=== PATIENT | female | born 1955 | race Caucasian/White ===

== ENCOUNTER → 2016-07-04 08:02 | Day surgery (SDC) | payer MEDICARE, MEDICAID ==
[~2016-07-04 08:02] MED LIST: Buffered Lidocaine 1% SYR 3ML* 3 ML/SYR SYRINGE INTRADERM ONE; Lidocaine 1% INJ* 10 MG/ML 30 ML SDV ONE; Midazolam* 1 MG/ML 5 ML VIAL (5 MG) ONE; Ondansetron INJ* 2 MG/ML VIAL IV PRN; Ondansetron INJ* 2 MG/ML VIAL ONE; Propofol* 10 MG/ML 20 ML BTL IV PUSH ONE; ceFAZolin 2 GM PREMIX (*) 2 GM/50 ML BAG IVPB ONE; fentaNYL* 50 MCG/ML 2 ML VIAL (100 MCG VIAL) ONE
--- NOTE | 2016-07-04 10:36 | SURGPN ---
Brief Operative Note - Surgery Procedures: Procedures Pre-OP Diagnoses: Metastatic Cancer Post-op Diagnosis: same Procedure: Insertion of powerport, needle in Surgeon: Dashawn Asst: none Anethesia: local, JUAN Murphy EBL: minimal IVF: 800cc LR Specimen: none Drains: none 8Fr single lumen power port via R SCV
[2016-07-04 11:17] VITALS: BP 121/76
--- NOTE | 2016-07-04 11:36 | RAD ---
Indication: Post power port placement. Assess for pneumothorax. Adenocarcinoma. Cardiovascular disease and respiratory disease on oxygen. Comparison: May 03, 2016 CT. Technique: Upright AP 1050 hours Report: Tip of RIGHT chest port at level of superior vena cava RIGHT atrial junction directed central. Minimal linear atelectasis at the RIGHT lung base. No alveolar consolidation, focal pulmonary lesion, pleural effusion, pneumothorax. The heart, pulmonary vasculature, and mediastinal contours are unremarkable. IMPRESSION: Negative for pneumothorax post RIGHT chest port placement.
--- NOTE | 2016-07-04 14:26 | RAD ---
INDICATION: chest port placement COMPARISONS: None relevant TECHNIQUE: Fluoroscopy was provided for a vascular access procedure. Total fluoroscopy time is: 52.1 seconds FINDINGS: Spot images demonstrate a right-sided chest port the tip overlying the ureteral junction. IMPRESSION: FLUOROSCOPY WAS PROVIDED FOR A VASCULAR ACCESS PROCEDURE CPT II Codes: 6045F
--- NOTE | 2016-07-05 05:07 | OP ---
DATE OF OPERATION: 07/04/16 [facility] [place] [facility] DATE OF : 59 SURGEON: John Tamez MD MANAGER FINANCIAL SERVICES: None. ANESTHESIOLOGIST: Dr. Rajat Murphy. ANESTHESIA: Local MAC. 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 OPERATIVE PROCEDURE: Insertion of PowerPort. SPECIMEN: None. DRAINS: None. 8-Guinean PowerPort placed in the right subclavian vein. DESCRIPTION OF PROCEDURE: The patient was then identified in the preoperative area. I discussed the case with her again and insertion of PowerPort, going over the risks, benefits, and alternatives. We had briefly spoken of it in my office when she was diagnosed. She had still not seen Oncology. The patient had no questions and understood the possible complications which included, but not limited to bleeding, infection, hemothorax, pneumothorax, need for additional procedures, infection of PowerPort, and the possible need for removal of port. She was marked, taken back to the operating room, and placed on the operating table in a supine position. General sedation was given. SCDs were placed on bilateral lower extremities. Preoperative antibiotics were given and the patient's right upper chest and neck were prepped and draped in a standard surgical fashion. Time-out was performed. Injection of lidocaine along the proposed stick site and port site was carried out. The right subclavian vein with an access and a wire inserted through this toward the superior vena cava. This was done fluoroscopy to assure its placement. With the wire in place, a pocket was made inferior to this and the wire was brought in through the separate incision. The subclavian vein was then dilated with the given dilators under fluoroscopy and the 8-Guinean tubing was then inserted. It was lined up to be the appropriate length and cut size and attached to the pre-flushed port, which was sutured into the pocket with 0 surgical sutures inferiorly, medially, and at the hub. The wound was then irrigated. The port was then accessed and good aspiration of blood was encountered and this was then flushed with saline. The defect was then reapproximated with 3-0 Polysorb sutures followed by 4-0 Monocryl subcuticular suture. Steri-Strips and sterile dressings were applied. Next, the port was accessed with the Garcia needle, again aspiration of blood was performed with ease and the port was then flushed with heparinized saline. Needle was left in place and wound dressing was applied over this. The patient tolerated the procedure well, was transferred to PACU in stable condition. CC: [facility]; Dr. Bishnu Blair; Dr. Ambrosio Peter * [id number][place] [place]: [id number] MTDD
== END | disposition home or self-care (01) ==
LOC: OR 08:02
PROVIDERS: ATTEND Surgery
DX: C80.1 Malignant (primary) neoplasm, unspecified (principal); I48.91 Unspecified atrial fibrillation; I10 Essential (primary) hypertension; J44.9 Chronic obstructive pulmonary disease, unspecified; F17.210 Nicotine dependence, cigarettes, uncomplicated; I51.7 Cardiomegaly
CPT/HCPCS: 71010; C1788; J0690; J1642; J2250; J2405; J2704; J3010

== ENCOUNTER 2016-07-27 15:36 | Emergency (ER) | payer MEDICARE, MEDICAID ==
[2016-07-27 16:35] VITALS: BP 111/60
--- NOTE | 2016-07-27 18:33 | ED ---
Trev Lin Alok, scribed for Willy Jacobo MD on 07/27/16 at 1609 . HPI Cardiac - HPI Summary HPI Summary: 60 y/o female with lymphoma and active chemo presents to the ED following visit to PCP for oxygen re-certification where routine CXR revealed fluid in lung. Pt reports mild chest congestion as well as lower extremity edema. Pt is on home O2 and has a history or A Fib. No other PMHx at this time. - History of Current Complaint Chief Complaint: EDShortnessOfBreath Stated Complaint: REMOVE FLUID FROM THE LUNGS Time Seen by Provider: 07/27/16 15:49 Hx Obtained From: Patient Onset/Duration: Started Hours Ago, Atraumatic, Still Present Timing: Constant Initial Severity: Moderate Current Severity: Moderate Chest Pain Location: Diffuse Chest Pain Radiates: No Character: Other: - congestion Aggravating Factor(s): Nothing Alleviating Factor(s): Nothing Associated Signs and Symptoms: Positive: Chest Pain - Congestion, Edema - LE - Additional Pertinent History Primary Care Physician: DEVYN - Allergy/Home Medications Allergies/Adverse Reactions: Allergies Allergy/AdvReac Type Severity Reaction Status Date / Time No Known Allergies Allergy Verified 07/04/16 08:36 PMH/Surg Hx/FS Hx/Imm Hx Endocrine/Hematology History: Denies: Hx Diabetes, Hx Thyroid Disease Cardiovascular History: Reports: Hx Congestive Heart Failure, Hx Hypertension - W/MEDS, Other Cardiovascular Problems/Disorders Denies: Hx Pacemaker/ICD Respiratory History: Reports: Hx Asthma, Hx Chronic Obstructive Pulmonary Disease (COPD), Hx Pneumonia, Hx Sleep Apnea, Other Respiratory Problems/ Disorders - ON CONTINOUS O2 2L GI History: Reports: Other GI Disorders - cancer in lymph nodes, gall stones Denies: Hx Ulcer Musculoskeletal History: Reports: Hx Arthritis - hand, Hx Back Problems, Other Musculoskeletal History - ARTHRITIS Sensory History: Reports: Hx Contacts or Glasses - glasses Denies: Hx Hearing Aid Opthamlomology History: Reports: Hx Contacts or Glasses - glasses Neurological History: Reports: Hx Headaches Psychiatric History: Denies: Hx Panic Disorder - Cancer History Hx Chemotherapy: Yes - will start on Hx Radiation Therapy: No - Surgical History Surgery Procedure, Year, and Place: TUBAL LIGATION. TONSILECTOMY -1962 Hx Anesthesia Reactions: No Infectious Disease History: No Infectious Disease History: Denies: Hx Clostridium Difficile, Hx Hepatitis, Hx Human Immunodeficiency Virus (HIV), Hx of Known/Suspected MRSA, Hx Shingles, Hx Tuberculosis, Hx Known/ Suspected VRE, Hx Known/Suspected VRSA, History Other Infectious Disease, Traveled Outside the [place] in Last 30 Days - Family History Known Family History: Positive: Other - No - Hx Breast Cancer - Social History Occupation: Unemployed Lives: With Family - Alcohol Use: None Substance Use Type: Reports: None Hx Tobacco Use: Yes Smoking Status (MU): Heavy Every Day Tobacco Smoker Type: Cigarettes Amount Used/How Often: 9/day Length of Time of Smoking/Using Tobacco: 30+ years Have You Smoked in the Last Year: Yes Review of Systems Negative: Fever Positive: Chest Pain - Congestion Positive: Edema - Lower extremeties All Other Systems Reviewed And Are Negative: Yes Physical Exam Triage Information Reviewed: Yes Vital Signs On Initial Exam: Initial Vitals Temp Pulse Resp BP Pulse Ox 97.3 F 105 20 115/71 100 07/27/16 15:39 07/27/16 15:39 07/27/16 15:39 07/27/16 15:39 07/27/16 15:39 Vital Signs Reviewed: Yes Appearance: Positive: Well-Appearing, No Pain Distress Skin: Positive: Warm, Skin Color Reflects Adequate Perfusion, Dry Head/Face: Positive: Normal Head/Face Inspection Eyes: Positive: Normal ENT: Positive: Normal ENT inspection Neck: Positive: Supple, Nontender Respiratory/Lung Sounds: Positive: Clear to Auscultation, Breath Sounds Present Cardiovascular: Positive: Tachycardia - Borderline, Irregular rate Abdomen Description: Positive: Nontender, Soft Bowel Sounds: Positive: Present Musculoskeletal: Positive: Other - Bilateral pedal edema Neurological: Positive: Normal Psychiatric: Positive: Normal, Affect/Mood Appropriate Diagnostics - Vital Signs Vital Signs Temp Pulse Resp BP Pulse Ox 07/27/16 15:39 97.3 F 105 20 115/71 100 - Laboratory Lab Statement: Any lab studies that have been ordered have been reviewed, and results considered in the medical decision making process. - EKG 1543 Cardiac Rate: Tachycardia EKG Rhythm: Sinus Tachycardia - 101 bpm EKG Interpretation: Atrial Fibrillation, Borderline Tachycardia Disposition - Course Course Of Treatment: Ms. New assured me that she was not symptomatic and that she was here in the ED because of an incidental finding on CXR. CXR showed a small pleural effusion has recollected. I spoke with Dr. Chowdhury and she will F/U. - Diagnoses Provider Diagnoses: Pleural effusion Discharge - Discharge Plan Condition: Stable Disposition: HOME Patient Education Materials: Pleural Effusion (ED) Referrals: Ambrosio Peter MD [Primary Care Provider] - Additional Instructions: Please Follow up with Dr. Chowdhury The documentation as recorded by the Trev hu Alok accurately reflects the service I personally performed and the decisions made by me, Willy Jacobo MD.
== END 2016-07-27 16:34 | disposition home or self-care (01) ==
LOC: ED 15:36
DX: J90 Pleural effusion, not elsewhere classified (principal); I48.91 Unspecified atrial fibrillation; I50.9 Heart failure, unspecified; I10 Essential (primary) hypertension; J44.9 Chronic obstructive pulmonary disease, unspecified; J45.909 Unspecified asthma, uncomplicated; Z99.81 Dependence on supplemental oxygen; F17.210 Nicotine dependence, cigarettes, uncomplicated; C85.90 Non-Hodgkin lymphoma, unspecified, unspecified site; R05 Cough
CPT/HCPCS: 71020; 93005; 99282

== ENCOUNTER 2017-01-22 23:12 | Inpatient (IN) | payer MEDICARE, MEDICAID ==
[2017-01-23 00:59] LABS: Mean Corpuscular HGB Conc 35 g/dl (31-36); White Blood Count 1.2 10^3/ul (3.5-10.8)
[2017-01-23 01:01] LABS: Hematocrit 18 % (35-47); Mean Corpuscular Hemoglobin 35 pg (27-31); Mean Corpuscular Volume 101 fL (80-97); Mean Platelet Volume 10 um3 (7.4-10.4); Red Blood Count 1.82 10^6/ul (4.0-5.4); Red Cell Distribution Width 15 % (10.5-15)
[2017-01-23 01:09] LABS: BUN/Creatinine Ratio 32.3 (8-20); Calcium 8.4 mg/dL (8.6-10.3); EGFR African American 42.1 (>60); EGFR Non-African American 32.8 (>60); Globulin 3.3 g/dL (2-4); Potassium 3.9 mmol/L (3.5-5.0); Total Bilirubin 0.8 mg/dL (0.2-1.0); Total Protein 6.3 g/dL (6.4-8.9)
[2017-01-23 01:10] LABS: Add Diff/Slide Review? Slide Review Added; Comments Flag Yes
[2017-01-23 01:11] LABS: Hemoglobin 6.4 g/dl (12.0-16.0)
[2017-01-23] MEDS ORDERED: Albuterol/Ipratropium NEB.SOL* Albuterol 2.5 MG/Ipratropium 0.5 MG 3 ML INH PRN (02:24)
[2017-01-23] MEDS ORDERED: Ondansetron INJ* 2 MG/ML VIAL IV PRN (02:24)
[2017-01-23] MEDS ORDERED: Acetaminophen TAB* 325 MG PO PRN (02:39)
[2017-01-23 02:42] LABS: Fibrinogen 63 mg/dL (110.8-404.3)
[2017-01-23 04:33] LABS: Mean Platelet Volume 7 um3 (7.4-10.4)
[2017-01-23 04:34] LABS: Comments Flag Yes
--- NOTE | 2017-01-23 05:16 | HP ---
ADMISSION HISTORY AND PHYSICAL: DATE OF ADMISSION: 01/23/17 PRIMARY CARE PROVIDER: Dr. Peter. ONCOLOGIST: Dr. Chowdhury. HEALTHCARE PROXY: The patient does not want to identify healthcare proxy at this time. CODE STATUS: Full. SOURCE OF INFORMATION: History obtained from interview with the patient, review of past medical records. RELIABILITY: Good. CHIEF COMPLAINT: Told to come in for thrombocytopenia. HISTORY OF PRESENT ILLNESS: This is a 61-year-old female, medical history including metastatic cholangio-carcinoma, receiving palliative chemotherapy per record review July 2016, received last dose of this cycle 1 week prior to this day. She has been feeling herself except for maybe a little more drained/tired with less energy over the last 3 to 4 days. She also has noted increased dyspnea on exertion with performing activities around the house. She denies any bleeding from her teeth while brushing them, although did have a bloody nose that was intermittent "on and off " for 2 to 3 days that ended 2 days prior to presentation. She noticed increased bruising in her arms with itching and a larger bruise with the phlebotomy performed for recent blood check. The patient denies any melena or bright red blood in her stool. PAST MEDICAL HISTORY: Includes: 1. COPD with chronic respiratory failure, on home 2 L of oxygen. 2. Atrial fibrillation. 3. Chronic cholecystitis. 4. Hypertension. 5. History of tonsillectomy. 6. Tubal ligation. 7. Metastatic cholangiocarcinoma. MEDICATIONS: The patient brought medications, reviewed with the patient: 1. Zofran 4 mg every 6 hours as needed for nausea. 2. Pulmicort ___BID__. 3. Magnesium 500 mg 3 times a day. 4. Zenpep DR 50,000 mg 3 times a day with meals. 5. Digoxin 0.25 mg Saturday through Saturday and 500 mcg Saturday and Sundays. 6. Xarelto 20 mg daily. 7. Loperamide 2 mg for loose stools as needed. 8. Spironolactone 50 mg daily. 9. Toprol 50 mg twice daily. 10. Lasix 80 mg daily. 11. Montelukast 10 mg daily. 12. Diltiazem 30 mg 4 times a day. 13. Prochlorperazine 10 mg as needed. 14. Albuterol nebulizer as needed. ALLERGIES: No known drug allergies. FAMILY HISTORY: Mother with leukemia, father with an [place]. SOCIAL HISTORY: , lives with her family at home. Smokes 1 pack per day for approximately 30 years. REVIEW OF SYSTEMS: Otherwise, all other systems reviewed are negative. PHYSICAL EXAMINATION GENERAL: Older than stated age. VITAL SIGNS: In the emergency room, blood pressure 120/59, pulse 64, respiratory rate 20, T-max 99.2, she is 96% on 2 L oxygen. HEENT: Oropharynx is clear. Dry mucous membranes. Sclerae are anicteric. LUNGS: Clear to auscultation. HEART: Irregularly irregular heart rate. ABDOMEN: Soft, nontender, nondistended. EXTREMITIES: Warm, well perfused without clubbing, cyanosis, or edema. She has a bruising in bilateral arms as well as splinter erythema in lower extremities, 1 to 2+ bilateral pitting edema. NEUROLOGIC: She is alert and oriented x3. Her cranial nerves are intact. LABORATORY DATA: Pertinent laboratory data reviewed: White blood cell count 1.2, absolute neutrophils 800, hemoglobin 6.4, MCV 101, platelets 2. BUN is 52 , creatinine 1.62. AST 60, ALT 66, alk phos 136. Albumin is 3.0. INR was noted to be 15.75 with a PTT greater than 212. ASSESSMENT AND PLAN: This is a 61-year-old female with a past medical history of metastatic cholangiocarcinoma, currently receiving palliative chemotherapy per chart review, presented to the hospital as she was found with severe thrombocytopenia. 1. Thrombocytopenia. Currently receiving unit of platelets, recheck 1 hour after receipt of platelets. Second unit of platelets is en route from [place]. Adding on fibrinogen as well as LDH given thrombocytopenia, anemia, and elevated coagulation factors. 2. Anemia. One unit of blood ordered by Dr. Hilario in the ED. Recheck CBC in the morning. 3. Neutropenia. No active fever. If develops fever, will need antibiotics for neutropenic fever, although no evidence that she is actively infected at this time. 4. Elevated coagulation factors. Did discuss with Dr. Clay, agree with his suggestion, recheck from peripheral blood draw and not from central port. Adding on fibrinogen as well as LDH as indicated above. In the setting of active chemo as well as malignancy, I do not suspect microangiopathic hemolytic anemia; however, smear is still pending at this time. 5. Chronic obstructive pulmonary disease with chronic respiratory failure. Continue all home medications. 6. Hypertension. Continue all home medications. 7. Atrial fibrillation. Continue diltiazem as well as metoprolol and digoxin, holding Xarelto given severe thrombocytopenia. 8. DVT prophylaxis is contraindicated in the setting of thrombocytopenia. [id number]/[facility] #: [id number] MTDD
[2017-01-23] MEDS: Diltiazem TAB* 30 MG PO SCH ×4 (06:15→23:28)
[2017-01-23] MEDS: Digoxin TAB* 0.25 MG PO SCH (06:20)
--- NOTE | 2017-01-23 06:49 | ED ---
Jakub Lin Rebecca, scribed for Nathan Hilariouel on 01/22/17 at 2338 . Complex/Multi-Sys Presentation - HPI Summary HPI Summary: Pt is a 61 y/o F BIBA who presents to ED after being referred by Dr. Clay upon receiving blood results revealing low platelet count. She was advised to come to [facility] ED because her levels are dangerously low. Additionally c/o bilateral edema and generalized weakness stating she feels "drained." Denies any pain and hematuria. Is currently undergoing chemotherapy via chest port to treat lymphoma. Last chemo session was 01/15 and the next is 01/29. - History Of Current Complaint Chief Complaint: EDWeakness Time Seen by Provider: 01/22/17 23:23 Hx Obtained From: Patient Onset/Duration: Still Present Severity Currently: None Location: Negative Aggravating Factor(s): Nothing Alleviating Factor(s): Nothing Associated Signs And Symptoms: Positive: Weakness - Generalized, Other - Low platelet count - Allergies/Home Medications Allergies/Adverse Reactions: Allergies Allergy/AdvReac Type Severity Reaction Status Date / Time No Known Allergies Allergy Verified 09/12/16 11:57 PMH/Surg Hx/FS Hx/Imm Hx Endocrine/Hematology History: Denies: Hx Diabetes, Hx Thyroid Disease Cardiovascular History: Reports: Hx Congestive Heart Failure, Hx Hypertension - W/MEDS, Other Cardiovascular Problems/Disorders - A FIB, ON MEDS Denies: Hx Pacemaker/ICD Respiratory History: Reports: Hx Asthma, Hx Chronic Obstructive Pulmonary Disease (COPD), Hx Pneumonia, Hx Sleep Apnea, Other Respiratory Problems/ Disorders - ON CONTINOUS O2 2L GI History: Reports: Other GI Disorders - cancer in lymph nodes, gall stones Denies: Hx Ulcer History: Reports: Hx Renal Disease - abnormal gfr Denies: Hx Dialysis Musculoskeletal History: Reports: Hx Arthritis - hand, Hx Back Problems, Other Musculoskeletal History - ARTHRITIS Sensory History: Reports: Hx Contacts or Glasses - glasses Denies: Hx Hearing Aid Opthamlomology History: Reports: Hx Contacts or Glasses - glasses Neurological History: Reports: Hx Headaches Psychiatric History: Denies: Hx Panic Disorder - Cancer History Cancer Type, Location and Year: gallbladder Hx Chemotherapy: Yes - will start on Hx Radiation Therapy: No - Surgical History Surgery Procedure, Year, and Place: TUBAL LIGATION. TONSILECTOMY -1963 Hx Anesthesia Reactions: No Infectious Disease History: Denies: Hx Clostridium Difficile, Hx Hepatitis, Hx Human Immunodeficiency Virus (HIV), Hx of Known/Suspected MRSA, Hx Shingles, Hx Tuberculosis, Hx Known/ Suspected VRE, Hx Known/Suspected VRSA, History Other Infectious Disease, Traveled Outside the [place] in Last 30 Days - Family History Known Family History: Positive: Other - No - Hx Breast Cancer - Social History Alcohol Use: None Substance Use Type: Reports: None Hx Tobacco Use: Yes Smoking Status (MU): Heavy Every Day Tobacco Smoker Type: Cigarettes Amount Used/How Often: 9/day Length of Time of Smoking/Using Tobacco: 30+ years Have You Smoked in the Last Year: Yes Review of Systems Positive: Other - Low platelet count Negative: hematuria Positive: Edema - Bilateral, Other - NEGATIVE: any pain Positive: Weakness - Generalized All Other Systems Reviewed And Are Negative: Yes Physical Exam - Summary Physical Exam Summary: Appearance: Well appearing, no pain distress Skin: warm, dry Head/face: normal Eyes: EOMI, ALLY ENT: normal Neck: supple, nontender Respiratory: CTA, breath sounds present Cardiovascular: RRR, pulses symmetrical, catheter in the chest Abdomen: nontender, soft Bowel: present Musculoskeletal: strength/ROM intact, rash over the extremities, bilateral pedal edema Neuro: normal, sensory motor intact, A&Ox3 Triage Information Reviewed: Yes Vital Signs On Initial Exam: Initial Vitals Temp Pulse Resp BP Pulse Ox 99.2 F 64 20 120/59 96 01/22/17 23:18 01/22/17 23:18 01/22/17 23:18 01/22/17 23:18 01/22/17 23:18 Vital Signs Reviewed: Yes Diagnostics - Vital Signs Vital Signs Temp Pulse Resp BP Pulse Ox 01/22/17 23:18 99.2 F 64 20 120/59 96 - Laboratory Lab Results: Lab Results 01/23/17 01/23/17 01/23/17 Range/Units 00:32 00:32 00:32 WBC 1.2 L (3.5-10.8) 10^3/ul RBC 1.82 L (4.0-5.4) 10^6/ul Hgb 6.4 L* (12.0-16.0) g/dl Hct 18 L (35-47) % MCV 101 H (80-97) fL MCH 35 H (27-31) pg MCHC 35 (31-36) g/dl RDW 15 (10.5-15) % Plt Count 2 L* (150-450) 10^3/ul MPV 10 (7.4-10.4) um3 Neut % (Auto) 65.9 (38-83) % Lymph % (Auto) 28.2 (25-47) % [place] % (Auto) 5.6 (1-9) % Eos % (Auto) 0.2 (0-6) % Baso % (Auto) 0.1 (0-2) % Absolute Neuts (auto) 0.8 L* (1.5-7.7) 10^3/ul Absolute Lymphs (auto) 0.3 L (1.0-4.8) 10^3/ul Absolute Monos (auto) 0.1 (0-0.8) 10^3/ul Absolute Eos (auto) 0 (0-0.6) 10^3/ul Absolute Basos (auto) 0 (0-0.2) 10^3/ul Absolute Nucleated RBC 0 10^3/ul Nucleated RBC % 0.1 INR (Anticoag Therapy) 15.75 H* (0.89-1.11) APTT > 212.0 H* (26.0-36.3) seconds Fibrinogen 63 L* (110.8-404.3) mg/dL Sodium (133-145) mmol/L Potassium (3.5-5.0) mmol/L Chloride (101-111) mmol/L Carbon Dioxide (22-32) mmol/L Anion Gap (2-11) mmol/L BUN (6-24) mg/dL Creatinine (0.51-0.95) mg/dL Est GFR ( Amer) (>60) Est GFR (Non-Af Amer) (>60) BUN/Creatinine Ratio (8-20) Glucose (70-100) mg/dL Calcium (8.6-10.3) mg/dL Total Bilirubin (0.2-1.0) mg/dL AST (13-39) U/L ALT (7-52) U/L Alkaline Phosphatase (34-104) U/L Lactate Dehydrogenase (140-271) U/L Total Protein (6.4-8.9) g/dL Albumin (3.2-5.2) g/dL Globulin (2-4) g/dL Albumin/Globulin Ratio (1-3) Blood Type O Positive Antibody Screen Negative Crossmatch See Detail 01/23/17 Range/Units 00:32 WBC (3.5-10.8) 10^3/ul RBC (4.0-5.4) 10^6/ul Hgb (12.0-16.0) g/dl Hct (35-47) % MCV (80-97) fL MCH (27-31) pg MCHC (31-36) g/dl RDW (10.5-15) % Plt Count (150-450) 10^3/ul MPV (7.4-10.4) um3 Neut % (Auto) (38-83) % Lymph % (Auto) (25-47) % [place] % (Auto) (1-9) % Eos % (Auto) (0-6) % Baso % (Auto) (0-2) % Absolute Neuts (auto) (1.5-7.7) 10^3/ul Absolute Lymphs (auto) (1.0-4.8) 10^3/ul Absolute Monos (auto) (0-0.8) 10^3/ul Absolute Eos (auto) (0-0.6) 10^3/ul Absolute Basos (auto) (0-0.2) 10^3/ul Absolute Nucleated RBC 10^3/ul Nucleated RBC % INR (Anticoag Therapy) (0.89-1.11) APTT (26.0-36.3) seconds Fibrinogen (110.8-404.3) mg/dL Sodium 134 (133-145) mmol/L Potassium 3.9 (3.5-5.0) mmol/L Chloride 101 (101-111) mmol/L Carbon Dioxide 26 (22-32) mmol/L Anion Gap 7 (2-11) mmol/L BUN 52 H (6-24) mg/dL Creatinine 1.61 H (0.51-0.95) mg/dL Est GFR ( Amer) 42.1 (>60) Est GFR (Non-Af Amer) 32.8 (>60) BUN/Creatinine Ratio 32.3 H (8-20) Glucose 108 H (70-100) mg/dL Calcium 8.4 L (8.6-10.3) mg/dL Total Bilirubin 0.80 (0.2-1.0) mg/dL AST 60 H (13-39) U/L ALT 66 H (7-52) U/L Alkaline Phosphatase 136 H (34-104) U/L Lactate Dehydrogenase 170 (140-271) U/L Total Protein 6.3 L (6.4-8.9) g/dL Albumin 3.0 L (3.2-5.2) g/dL Globulin 3.3 (2-4) g/dL Albumin/Globulin Ratio 0.9 L (1-3) Blood Type Antibody Screen Crossmatch Result Diagrams: 01/23/17 04:25 01/23/17 00:32 Lab Statement: Any lab studies that have been ordered have been reviewed, and results considered in the medical decision making process. Complex Multi-Symp Course/Dx Assessment/Plan: Pt is a 61 y/o F BIBA who presents to ED after being referred by Dr. Clay upon receiving blood results revealing low platelet count. She was advised to come to [facility] ED because her levels are dangerously low. Additionally c /o bilateral edema and generalized weakness stating she feels "drained." Denies any pain and hematuria. Is currently undergoing chemotherapy via chest port to treat lymphoma. Last chemo session was 01/15 and the next is 01/29. Blood work done. WBC of 1.2 L, Hgb of 6.4L, Plt count of 2L, absolute neuts of 0.8LDiscussed care of pt with Dr. Razo, hospitalist, who accepts pt for admission. She will be admitted with Dx of pancytopenia, Hx of lymphoma, Hx of chemotherapy. She understands and agrees. - Diagnoses Provider Diagnoses: Pancytopenia, History of lymphoma, History of chemotherapy - Physician Notifications Discussed Care Of Patient With: Jeffrey Razo Time Discussed With Above Provider: 01:18 Instructed by Provider To: Other - Accepts pt for admission. - Critical Care Time Critical Care Time: 30-74 min Discharge - Discharge Plan Condition: Stable Disposition: ADMITTED TO [facility] The documentation as recorded by the Jakub hu Rebecca accurately reflects the service I personally performed and the decisions made by , Lukasz Hilario.
[2017-01-23] MEDS: Pancrelipase CAP* 5,000 UNITS CAP PO SCH ×3 (08:20→17:42)
[2017-01-23] MEDS: Magnesium Oxide TAB* 400 MG PO SCH ×3 (08:21→20:11)
[2017-01-23] MEDS: Montelukast Sodium TAB* 10 MG PO SCH (08:22)
[2017-01-23] MEDS: Mometasone/Formoter 200/5 MDI INH SCH ×2 (09:59→20:22)
[2017-01-23] MEDS: Furosemide TAB* 40 MG PO SCH (10:20)
[2017-01-23] MEDS: Metoprolol Tartrate TAB* 50 mg PO SCH ×2 (10:20→20:11)
[2017-01-23] MEDS: Spironolactone TAB* 25 MG PO SCH (10:20)
[2017-01-23 18:26] LABS: Hematocrit 26 % (35-47); Hemoglobin 8.8 g/dl (12.0-16.0); Mean Corpuscular HGB Conc 34 g/dl (31-36); Mean Corpuscular Hemoglobin 32 pg (27-31); Mean Corpuscular Volume 94 fL (80-97); Mean Platelet Volume 7 um3 (7.4-10.4); Red Blood Count 2.72 10^6/ul (4.0-5.4); Red Cell Distribution Width 20 % (10.5-15)
[2017-01-23 18:32] LABS: Comments Flag Yes; White Blood Count 1.5 10^3/ul (3.5-10.8)
[2017-01-23 18:34] LABS: Add Diff/Slide Review? Slide Review Added
[2017-01-24] MEDS: Digoxin TAB* 0.25 MG PO SCH (05:59)
[2017-01-24] MEDS: Diltiazem TAB* 30 MG PO SCH ×2 (05:59→12:53)
[2017-01-24] MEDS: Pancrelipase CAP* 5,000 UNITS CAP PO SCH ×2 (08:50→12:44)
[2017-01-24] MEDS: Metoprolol Tartrate TAB* 50 mg PO SCH (08:52)
[2017-01-24] MEDS: Montelukast Sodium TAB* 10 MG PO SCH (08:52)
[2017-01-24] MEDS: Magnesium Oxide TAB* 400 MG PO SCH ×2 (08:52→14:55)
[2017-01-24] MEDS ORDERED: Influenza VAC *QUAD* 2017-18* 0.5 ML SYRINGE IM ONE (09:00)
[2017-01-24] MEDS: Mometasone/Formoter 200/5 MDI INH SCH (09:20)
[2017-01-24] MEDS: Spironolactone TAB* 25 MG PO SCH (09:27)
[2017-01-24] MEDS: Furosemide TAB* 40 MG PO SCH (09:27)
--- NOTE | 2017-01-24 11:07 | DS ---
DATE OF ADMISSION: 01/23/2017. DATE OF DISCHARGE: 01/24/2017. ATTENDING PHYSICIAN: Dr. Cheyenne Chowdhury * (dictated by IND[place]NA Ingram). REASON FOR ADMISSION: Pancytopenia, shortness of breath, profound anemia, and profound thrombocytopenia, history of pancreatic cancer, status post Gemcitabine chemotherapy last week. DISCHARGE MEDICATIONS: Discharge medications will include all of her previous home medications which include: 1. Digoxin 0.25 mg p.o. Saturday, Saturday, Saturday, , Saturday. 2. Digoxin 0.5 mg p.o. Saturday and Saturday. 3. Cardizem 30 mg every 6 hours as scheduled. 4. Lasix 80 mg p.o. daily. 5. Magnesium Oxide 400 mg p.o. 3 times daily. 6. Lopressor 50 mg p.o. q.12 hours. 7. Mometasone, a.k.a. Dulera 200/5 two puffs inhaled twice daily. 8. Singulair tab 10 mg p.o. daily. 9. Zofran 4 mg as needed for nausea. 10. Pancrelipase 50,000 units p.o. with meals. 11. Spironolactone 50 mg p.o. daily. HOSPITAL COURSE: The patient was admitted on 01/23/[address] Jeffrey Razo for a chief complaint of told to come in for thrombocytopenia by Dr. Clay through the Oncology Service. Briefly, she is a 61-year-old white female who we have treated for metastatic cholangiocarcinoma, receiving palliative chemotherapy, including Gemcitabine last week. For three to four days, she has had some dyspnea with exertion and significant fatigue with increased bruising and denies melena in her stool. Upon the admission through the emergency room, her blood counts were ANC of 800, platelet count of 2, and hemoglobin of 6.4. She was transfused with three donor packs of platelets and two units of packed red blood cells for which her blood counts increased nicely to a final , an absolute neutrophil count of 1.1, hemoglobin of 8.8, and platelet count yet to be determined as she still is receiving one donor pack prior to her discharge. She was afebrile and her vital signs were stable throughout her transfusions and has tolerated them well. She does have a follow-up office visit with Dr. Chowdhury as scheduled on Saturday at the [facility]. She will follow a regular diet as tolerated and an activity level with no high impact activities. INDIANA INGRAM [id number]/[facility] #: [id number] MTDD
[2017-01-24 15:32] VITALS: BP 114/54
[2017-01-24 16:14] LABS: Hematocrit 24 % (35-47); Hemoglobin 8.2 g/dl (12.0-16.0); Mean Corpuscular HGB Conc 34 g/dl (31-36); Mean Corpuscular Hemoglobin 32 pg (27-31); Mean Corpuscular Volume 94 fL (80-97); Mean Platelet Volume 7 um3 (7.4-10.4); Red Blood Count 2.56 10^6/ul (4.0-5.4); Red Cell Distribution Width 20 % (10.5-15)
[2017-01-24 16:15] LABS: Comments Flag Yes
[2017-01-24 16:16] LABS: Add Diff/Slide Review? Slide Review Added; White Blood Count 1.9 10^3/ul (3.5-10.8)
[2017-01-26] MEDS ORDERED: Digoxin TAB* 0.25 MG PO SCH (06:00)
== END 2017-01-24 16:45 | disposition home or self-care (01) | DRG 809 ==
LOC: ED 23:12 → MED 01-23 02:24 → OBSVTOIN 01-23 10:35
PROVIDERS: ADMIT Internal Medicine; ATTEND Internal Medicine Hematology & Oncology
PROC: 30233R1 Transfusion of Nonautologous Platelets into Peripheral Vein, Percutaneous Approach (ICD-10-PCS; principal; 2017-01-23)
PROC: 30233N1 Transfusion of Nonautologous Red Blood Cells into Peripheral Vein, Percutaneous Approach (ICD-10-PCS; 2017-01-23)
DX: D61.818 Other pancytopenia (principal); J96.10 Chronic respiratory failure, unspecified whether with hypoxia or hypercapnia; C79.9 Secondary malignant neoplasm of unspecified site; I11.0 Hypertensive heart disease with heart failure; C25.9 Malignant neoplasm of pancreas, unspecified; I50.9 Heart failure, unspecified; K81.1 Chronic cholecystitis; D69.6 Thrombocytopenia, unspecified; I48.91 Unspecified atrial fibrillation; D64.9 Anemia, unspecified; J44.9 Chronic obstructive pulmonary disease, unspecified; F17.210 Nicotine dependence, cigarettes, uncomplicated; R79.1 Abnormal coagulation profile; G47.30 Sleep apnea, unspecified; M19.049 Primary osteoarthritis, unspecified hand; Z99.81 Dependence on supplemental oxygen; Z98.51 Tubal ligation status; Z82.49 Family history of ischemic heart disease and other diseases of the circulatory system; Z80.6 Family history of leukemia; Z92.21 Personal history of antineoplastic chemotherapy; Z95.828 Presence of other vascular implants and grafts; Z87.01 Personal history of pneumonia (recurrent)
CPT/HCPCS: 36415; 80053; 83615; 85025; 85049; 85384; 85610; 85730; 86850; 86900; 86901; 86922; 94640; 94760; 99232; 99239; 99406; A9270-GY; G0378; J1642; P9035; P9040

== ENCOUNTER 2017-04-03 19:27 | Emergency (ER) | payer MEDICARE, MEDICAID ==
[2017-04-03 19:38] VITALS: BP 128/70
--- NOTE | 2017-04-03 21:45 | UC ---
Agustín Lin Thomas, scribed for Binu Valera MD on 04/03/17 at 1953 . Shortness of Breath HPI - HPI Summary HPI Summary: The pt is a 61 y/o F presenting to Urgent Care c/o SOB at rest that began earlier today after she woke up from a nap. PMHx includes lymphoma and the patient is on chemotherapy. She is on 2L home oxygen, and earlier today the patients son drained fluid in the patients right lung via a tube. This improved the patients SOB somewhat. The patient also c/o intermittent epistaxis that began yesterday and is mostly relieved by evaluation in urgent care. She was recently hospitalized for bronchopneumonia. The patient recently finished a course of antibiotics. She is on Xarelto. - History of Current Complaint Chief Complaint: UCRespiratory Stated Complaint: SOB Time Seen by Provider: 04/03/17 19:32 Hx Obtained From: Patient Hx Last Menstrual Period: 1 week ago Onset/Duration: Lasting Hours - earlier today, Still Present Timing: Constant Dyspnea At: Rest Aggrevating Factors: Nothing Alleviating Factors: Other - Fluid drainage Associated Signs & Symptoms: Positive: Other - Epistaxis - Allergy/Home Medications Allergies/Adverse Reactions: Allergies Allergy/AdvReac Type Severity Reaction Status Date / Time No Known Allergies Allergy Verified 04/03/17 19:37 Home Medications: Home Medications Potassium Chlor TAB* [Potassium Chlor TAB 20 MEQ*] 40 meq PO DAILY 04/03/17 [ History Confirmed 04/03/17] PMH/Surg Hx/FS Hx/Imm Hx Previously Healthy: No - Cancer, COPD, A-Fib - Surgical History Surgical History: Yes Surgery Procedure, Year, and Place: TUBAL LIGATION. TONSILECTOMY -1962. TUBE IN RIGHT LUNG 02/2017. IMPLANTED PORT RIGHT CHEST 04/2016 - Family History Known Family History: Positive: Other - No - Hx Breast Cancer - Social History Alcohol Use: None Substance Use Type: None Smoking Status (MU): Current Every Day Smoker Type: Cigarettes Amount Used/How Often: 1/2-3/4 PPD Length of Time of Smoking/Using Tobacco: 30+ years Have You Smoked in the Last Year: Yes Household Exposure Type: Cigarettes - Immunization History Most Recent Influenza Vaccination: This flu season Most Recent Tetanus Shot: 2014 Most Recent Pneumonia Vaccination: "a few years ago" Review of Systems ENT: Epistaxis Respiratory: Shortness Of Breath All Other Systems Reviewed And Are Negative: Yes Physical Exam Triage Information Reviewed: Yes Vital Signs: Initial Vital Signs Temp 99 F 04/03/17 19:30 Pulse 124 04/03/17 19:30 Resp 22 04/03/17 19:30 BP 128/70 04/03/17 19:30 Pulse Ox 97 04/03/17 19:30 Vital Signs Reviewed: Yes - Additional Comments VITAL SIGNS: Reviewed. GENERAL: The patient is an elderly, fragile female who is tachycardic and short of breath. However, she is able to speak in full sentences. Patient is not in any acute respiratory distress. HEAD AND FACE: Normocephalic EYES: PERRLA, EOMI x 2. EARS: Hearing grossly intact. MOUTH: Oropharynx within normal limits. Nose: The right nostril has dried blood without any active bleeding. NECK: Supple, trachea is midline, no adenopathy, no JVD, no carotid bruit. CHEST: Symmetric, no tenderness at palpation LUNGS: The right lung has decreased breath sounds, crackles, and rhonchi. CVS: Regular rhythm, tachycardia, S1 and S2 present, no murmurs or gallops appreciated. ABDOMEN: Soft, non-tender. Bowel sounds are normal. No abdominal abnormal pulsations. EXTREMITIES: She has bilateral lower extremity edema. Full ROM in all major joints, no cyanosis or clubbing. NEURO: Alert and oriented x 3. No acute neurological deficits. Speech is normal and follows commands. SKIN: Dry and warm Shortness of Breath Dx - Course Course Of Treatment: The pt is a 61 y/o F presenting to Urgent Care c/o SOB at rest that began earlier today. PMHx includes lymphoma and the patient is on chemotherapy. She is on 2L home oxygen, and earlier today the patients son drained fluid in the patients right lung via a tube. This improved the patient s SOB somewhat. The patient also c/o intermittent epistaxis that began yesterday and is mostly relieved by evaluation in urgent care. She was recently hospitalized for bronchopneumonia. The patient recently finished a course of antibiotics. She is on Xarelto. The patient is an elderly female with no active epistaxis. The patient is taking blood thinners. She is also having shortness of breath and a productive cough. The son reports that he drained some of the patients pleural effusion earlier today; however, the patients shortness of breath continues and is worsening. In the physical exam, the patient has right lung crackles and rhonchi but no wheezing. Therefore, the patient was not given any Duo-Neb or Solu-Medrol. I believe the patient will benefit from further workup in the emergency department. She will go by ambulance to the [facility] emergency department. - Differential Dx/Diagnosis Differential Diagnosis/HQI/PQRI: Bronchitis, CHF, COPD Exacerbation, Pneumonia, Pulmonary Edema Provider Diagnoses: COPD, Pleural effusion, SOB, tachycardia, epistaxis. - Physician Notification/Consults Discussed Patient Care With: Liv Dorado Time Discussed With Above Provider: 19:50 Instructed by Provider To: Other - I discussed the case with Dr. Dorado, emergency medicine physician at [facility], who will accept the patient for transfer. Discharge - Discharge Plan Condition: Fair Disposition: OTHER Discharge Disposition Comment: Transferred to [facility] ED by ambulance. Referrals: Ambrosio Peter MD [Primary Care Provider] - The documentation as recorded by the Agustín hu Thomas accurately reflects the service I personally performed and the decisions made by , Binu Valera MD.
== END 2017-04-03 20:08 ==
LOC: UCEAST 19:27
DX: J90 Pleural effusion, not elsewhere classified (principal); R06.02 Shortness of breath; R00.0 Tachycardia, unspecified; R04.0 Epistaxis; J44.9 Chronic obstructive pulmonary disease, unspecified; Z72.0 Tobacco use
CPT/HCPCS: 99213; G0463

== ENCOUNTER 2017-04-03 20:34 | Inpatient (IN) | payer MEDICARE, MEDICAID ==
[2017-04-03] MEDS ORDERED: Levofloxacin 750 MG IVPREMIX(* 750 MG/150 ML BAG IVPB ONE (20:53)
[2017-04-03] MEDS ORDERED: NS 0.9% 1000 ML*IV.FLUID IV ONE (20:53)
[2017-04-03] MEDS ORDERED: Piperacillin/Tazobac ADVAN(*) 3.375 GM in NS 0.9% 100 ML* 100 ML IVPB ONE (20:53)
[2017-04-03 21:16] LABS: ABS Basophils 0 10^3/ul (0-0.2); ABS Eosinophils 0 10^3/ul (0-0.6); ABS Lymphocytes 0.3 10^3/ul (1.0-4.8); ABS Monocytes 0.8 10^3/ul (0-0.8); ABS Neutrophils 6.4 10^3/ul (1.5-7.7); ABS Nucleated RBC 0.03 10^3/ul; Eosinophil % 0.2 % (0-6); Hematocrit 26 % (35-47); Hemoglobin 8.6 g/dl (12.0-16.0); Lymphocyte % 3.6 % (25-47); Mean Corpuscular HGB Conc 33 g/dl (31-36); Mean Corpuscular Hemoglobin 35 pg (27-31); Mean Platelet Volume 10 um3 (7.4-10.4); Nucleated Red Blood Cells % 0.3; Red Blood Count 2.46 10^6/ul (4.0-5.4); Red Cell Distribution Width 20 % (10.5-15); White Blood Count 7.5 10^3/ul (3.5-10.8)
[2017-04-03 21:17] LABS: Mean Corpuscular Volume 107 fL (80-97); Platelet Count 33 10^3/ul (150-450)
[2017-04-03 21:26] LABS: INR 2.52 (0.89-1.11)
[2017-04-03 21:32] LABS: EGFR Non-African American 28.8 (>60)
--- NOTE | 2017-04-03 21:53 | RAD ---
Indication: Shortness of breath, COPD, pleural effusion. Epistaxes. Anticoagulated. Cholangiocarcinoma. Comparison: March 19, 2017 Technique: Sitting AP and lateral chest views. Report: Extensive airspace consolidation in the RIGHT lung. Small RIGHT pleural effusion with proportional basilar atelectasis. RIGHT basilar pleural drainage catheter in place without change. Negative for pneumothorax. Clear LEFT lung and pleural space. Tip of RIGHT chest port at level of superior vena cava directed central. Upper normal heart size. Unremarkable central pulmonary vasculature. IMPRESSION: Extensive airspace consolidation at the RIGHT lung grossly new compared with the recent prior exam most consistent with pneumonia. RIGHT pleural drainage catheter remains in place. No significant change in magnitude of small RIGHT pleural effusion.
[2017-04-03 21:57] LABS: Monocytes % 10 % (0-13)
[2017-04-03] MEDS ORDERED: Oseltamivir CAP* 75 MG PO ONE (22:18)
[2017-04-04] MEDS ORDERED: Albuterol HFA INHALER* 8 gm MDI INH PRN (00:18)
[2017-04-04] MEDS ORDERED: Diphenoxylat/Atrop 2.5-0.025M* 1 TAB PO PRN (00:18)
[2017-04-04] MEDS ORDERED: Ondansetron TAB* 4 MG PO PRN (00:18)
[2017-04-04] MEDS ORDERED: oxyCODONE TAB* 5 MG TAB PO PRN (00:18)
[2017-04-04] MEDS ORDERED: Prochlorperazine TAB* 10 MG PO PRN (00:18)
[2017-04-04] MEDS ORDERED: Digoxin IV* 0.5 MG/2 ML AMP (0.25 MG/ML) IV SLOW PU ONE (01:40)
[2017-04-04] MEDS: NS 0.9% 1000 ML* 1,000 ML IV SCH ×2 (01:45→18:18)
[2017-04-04] MEDS ORDERED: Digoxin IV* 0.5 MG/2 ML AMP (0.25 MG/ML) ONE (01:48)
[2017-04-04] MEDS: Metoprolol Tartrate TAB* 50 mg PO SCH ×3 (02:03→22:30)
[2017-04-04] MEDS: Diltiazem TAB* 30 MG PO SCH ×5 (02:04→22:30)
[2017-04-04 02:32] LABS: Urine Appearance Clear; Urine Blood 2+ (Negative); Urine Color Yellow; Urine Ketones Negative (Negative); Urine Protein Negative (Negative); Urine Specific Gravity 1.012 (1.010-1.030); Urine Urobilinogen Negative (Negative)
[2017-04-04] MEDS ORDERED: Oseltamivir CAP* 30 MG CAP PO SCH (03:00)
[2017-04-04] MEDS: Oxymetazoline 0.05% NASAL SPR* 15 ML BTL RIGHT NARE SCH ×4 (03:05→21:06)
[2017-04-04] MEDS: Morphine ORAL.SOLN 10 mg* 2 MG/ML UDC 5 ml PO PRN ×2 (03:11→12:30)
[2017-04-04] MEDS: Potassium Chlor TAB* 20 MEQ TAB.ER PO SCH ×3 (03:12→21:04)
--- NOTE | 2017-04-04 04:03 | HP ---
CC: Dr. Peter; Dr. Chowdhury. * HISTORY AND PHYSICAL: DATE OF ADMISSION: 04/03/17 PRIMARY CARE PROVIDER: Dr. Peter. ONCOLOGIST: Dr. Chowdhury. CHIEF COMPLAINT: Epistaxis and shortness of breath. HISTORY OF PRESENT ILLNESS: Ms. New is a 61-year-old female with a history of COPD with chronic hypoxic respiratory failure, on home O2 at 2 L per minute, atrial fibrillation, metastatic cholangiocarcinoma, and pancytopenia secondary to chemotherapy who presented to the emergency room with complaints of epistaxis and shortness of breath. The patient states that the nosebleed began couple of days prior to admission. She stated that was a very slow ooze previously. Today, she noticed an increased amount of blood. Because of this and severe shortness of breath, she decided to present to the emergency room. In terms of the shortness of breath, the patient states that she is chronically short of breath; however, she noted that she had developed progressive shortness of breath. She especially was very short of breath after waking up from her nap. She states that she was having a hard time walking even 2 feet without being very winded. She has a PleurX catheter on the right lateral chest wall that she used on the night of admission; however, she did not have any improvement in her symptoms. The patient does admit to an occasional cough, mild sputum production, but really this is unchanged from previous. She denies any fevers or chills or recent sick contacts. PAST MEDICAL HISTORY: 1. COPD with chronic hypoxic respiratory failure, on home O2 at 2 L per minute. 2. Ongoing tobacco abuse. 3. Metastatic cholangiocarcinoma. 4. Atrial fibrillation. 5. Right pleural effusion, status post PleurX catheter placement. 6. Hypertension. PAST SURGICAL HISTORY: 1. Tonsillectomy. 2. Tubal ligation. ALLERGIES: No known drug allergies. MEDICATIONS: 1. Potassium chloride 20 mEq p.o. b.i.d. 2. Lasix 80 mg p.o. daily. 3. Lomotil 1 tab p.o. t.i.d. p.r.n. diarrhea. 4. Singulair 10 mg p.o. nightly. 5. Oxycodone 5 mg p.o. q.6 hours p.r.n. pain. 6. Incruse Ellipta 1 puff inhaled daily. 7. Serevent Diskus 2 puffs inhaled twice daily. 8. Pulmicort Flexhaler 2 puffs inhaled twice daily. 9. Zofran 4 mg p.o. q.4 hours p.r.n. nausea. 10. Albuterol 1 neb inhaled 4 times daily. 11. Albuterol HFA 2 puffs inhaled q.6 hours p.r.n. shortness of breath. 12. Xarelto 20 mg p.o. daily. 13. Loperamide 2 caps p.o. 4 times a day p.r.n. diarrhea. 14. Metoprolol tartrate 50 mg p.o. b.i.d. 15. Compazine 10 mg p.o. q.6 hours p.r.n. nausea. 16. Diltiazem 30 mg p.o. 4 times a day. FAMILY HISTORY: Mom is . She had heart disease and leukemia. Dad is also , he of an MS. SOCIAL HISTORY: The patient continues to smoke anywhere between one half to three quarters of a pack of cigarettes per day. She denies any alcohol use. She is not working. She is , she has 6 children. She indicates that her Jordan would be her surrogate decision maker. REVIEW OF SYSTEMS: The patient denies any fevers or chills. She does admit to anorexia. She admits to marked chronic lower extremity edema. No chest pain. No palpitations. She admits to cough and shortness of breath as above. No nausea, no abdominal pain. She admits to chronic diarrhea. No hematochezia. At this point, though she does intermittently have bright red blood per rectum, no hematuria, no dysuria. No focal weakness or sensory loss. No sudden changes in vision. No dysphagia. No joint pains or muscle pains out of the ordinary. No rashes. No anxiety or depression. PHYSICAL EXAMINATION GENERAL: The patient is a well-developed middle-aged female who appears much older than her stated age, appearing to be moderately tachypneic, but in no acute distress. VITAL SIGNS: Blood pressure 109/66, pulse 141, respirations 28, temp 97.6, O2 sat 94% on 2 L. HEENT: Pupils are equal. They are round. Extraocular muscles are intact. Oropharynx is clear. Oral mucosa is moist. There is no submandibular, cervical , or supraclavicular adenopathy. Thyroid is not enlarged. No thyroid nodules noted. The patient has bright red blood occasionally dripping from her right nostril. PULMONARY: Breath sounds are diminished in all lung carter. CARDIAC: Normal S1, S2. Heart rate is irregularly irregular and tachycardic. The patient has marked anasarca from toes to hips bilaterally. ABDOMEN: Bowel sounds present. Abdomen is soft, nontender, nondistended. MUSCULOSKELETAL: There is no cyanosis or clubbing of the digits. There is full active range of motion of the upper extremities. Lower extremity mobility is limited due to massive edema. SKIN: Warm and dry. There are no rashes. There is bright red discoloration of the lower extremities bilaterally. This is not hot to touch, however. NEUROLOGIC: Cranial nerves II through XII are grossly intact. Sensation is intact to light touch throughout. Strength is 5/5 and symmetric in the upper extremities. Lower extremity strength is limited due to massive edema. PSYCH: The patient is alert. She is oriented x3. Affect appears appropriate. DIAGNOSTIC STUDIES/LAB DATA: WBC 7.5, hemoglobin 8.6, hematocrit 26, platelets 33. INR 2.52. Sodium 134, potassium 4.8, chloride 103, CO2 25, BUN 70 , creatinine 1.8, glucose 128, lactic acid 1.9, calcium 8.5. Bilirubin 2.0, AST 26, ALT 22, alk phos 301. CK , CK-MB 2.5, troponin 0.01, CRP 96.88, BNP 260. Albumin 2.4. Influenza B positive. ABG 7.3, . EKG reveals atrial fibrillation with rapid ventricular response. It is difficult to evaluate patient's ST segments. She has a right bundle-branch block. Chest x-ray reveals extensive air space consolidation of the right lung, grossly new compared with the recent prior exam, most consistent with pneumonia. Right pleural drainage catheter remains in place. No significant change in the magnitude of small right pleural effusion. ASSESSMENT AND PLAN: Ms. New is a 61-year-old female who has a history of COPD with chronic hypoxic respiratory failure requiring 2 L of oxygen continuously at home, ongoing tobacco abuse, metastatic cholangiocarcinoma, and atrial fibrillation, who presents to the emergency room with complaints of epistaxis and shortness of breath. 1. Epistaxis. I suspect the patient is having nosebleed at this point as she has been on Xarelto and her platelet count is markedly reduced compared to her baseline. She had a significant drop from 03/25/17 to 04/01/17. We will hold her Xarelto. We will try Afrin and conservative measures, however, if this fails, she may need to have nasal packing placed. 2. Influenza B with associated sepsis. The patient tested positive for influenza B. I suspect this is why she is so much more short of breath than usual. The patient meets sepsis criteria with tachycardia and tachypnea; however, she does not have an elevated lactic acid level nor does she have any evidence of end-organ dysfunction. The patient has a SOFA score of at least 3 by sepsis-3 criteria, however, her score is based on thrombocytopenia and elevated bilirubin level, which are chronic for her. The patient has been started on Tamiflu 75 mg p.o. twice daily. She will receive normal saline at 100 mL per hour. She has already received 1500 mL of fluid in the emergency room. 3. Atrial fibrillation with rapid ventricular response. The patient's heart rate is uncontrolled at this time; however, she has not had her evening doses of her medications. I do think having influenza is driving her rate up further. She will get her usual dose of diltiazem and metoprolol now. We will monitor her heart rate with the initiation of these medications and continued IV fluid hydration. I am going to hold her Xarelto given her marked thrombocytopenia and ongoing epistaxis at this point. 4. Anemia and thrombocytopenia. This is chronic. Her anemia is fairly consistent with her baseline; however, her thrombocytopenia has worsened. [place] that this is likely secondary to her chemotherapy. 5. Stage 3 to 4 chronic kidney disease. The patient's creatinine has been progressively worsening over the last several months. Some of this may be related to attempted diuresis for the marked lower extremity edema that she has. I am going to hold her Lasix for now. Her creatinine will be followed up tomorrow morning. 6. Hyperbilirubinemia. This has been chronic. However, the patient's bilirubin is elevated at this point, however, has been elevated to this degree in the past. It is unclear if this is related to sepsis or her underlying cholangiocarcinoma. 7. Elevated alkaline phosphatase. This again is chronically elevated, however , worse than usual. This will need to be followed intermittently. 8. Chronic obstructive pulmonary disease. The patient does not have any wheezing on exam at this point. I do not feel that she is in exacerbation or requiring steroids. She will continue on her usual inhaler regimen. 9. Right pleural effusion, the patient has a PleurX catheter in place. At this point, she did do a drainage on the evening of admission. She states that she usually drains her pleural fluid every other day. 10. Hypertension. The patient's blood pressure is moderately elevated at this point, however, again, she has not received her usual evening medications. We will monitor her blood pressure for now. 11. DVT prophylaxis: According to the Adult Thrombosis Prophylaxis Risk Factor Assessment Guide, the patient has a total risk factor score of 5 making her highest risk. She will have SCDs for DVT prophylaxis as I am holding her Xarelto due to the epistaxis and thrombocytopenia. 12. Code status is full and the patient indicates that her would be her surrogate decision maker. TIME SPENT: Sixty-five minutes was spent admitting this patient. [id number]/[facility] #: [id number] TOÑA
[2017-04-04] MEDS: Umeclidin 62.5 MDI(NF) 1 INH MDI INH SCH (07:21)
[2017-04-04] MEDS: Albuterol 2.5 MG/3 ML NEB.SOL* (0.083%) INH SCH ×4 (07:21→20:37)
[2017-04-04] MEDS: Salmeterol DISKUS (NF) INH SCH ×2 (07:22→20:37)
[2017-04-04 08:12] LABS: Hematocrit 20 % (35-47); Hemoglobin 6.5 g/dl (12.0-16.0); Mean Corpuscular HGB Conc 33 g/dl (31-36); Mean Corpuscular Hemoglobin 35 pg (27-31); Mean Corpuscular Volume 106 fL (80-97); Mean Platelet Volume 9 um3 (7.4-10.4); Red Blood Count 1.86 10^6/ul (4.0-5.4); Red Cell Distribution Width 20 % (10.5-15); White Blood Count 5.1 10^3/ul (3.5-10.8)
[2017-04-04 08:17] LABS: EGFR Non-African American 31.2 (>60)
[2017-04-04 08:18] LABS: Platelet Count 12 10^3/ul (150-450)
[2017-04-04] MEDS ORDERED: Furosemide TAB* 40 MG PO SCH (09:00)
--- NOTE | 2017-04-04 09:32 | PN ---
Progress Note - Progress Note Date of Service: 04/04/17 SOAP: Subjective: significant epistaxis this am. overall feels slightly better. still very SOB however. Objective: Vital Signs Temp Pulse Resp BP Pulse Ox 99.1 F 135 14 100/58 100 04/04/17 08:09 04/04/17 08:09 04/04/17 08:09 04/04/17 08:09 04/04/17 08:09 sitting up breathing at 22 BPM bright red epistaxis right nares tachy r chest tube soft nt anasarcic A+O x 3, nonfocal neurological exam Laboratory Results - last 24 hr 04/03/17 04/03/17 04/03/17 20:50 20:50 20:50 WBC 7.5 RBC 2.46 L Hgb 8.6 L Hct 26 L MCV 107 H MCH 35 H MCHC 33 RDW 20 H Plt Count 33 L MPV 10 Immature Gran % (Auto) 1 Neut % (Auto) 84.7 H Lymph % (Auto) 3.6 L [place] % (Auto) 11.2 H Eos % (Auto) 0.2 Baso % (Auto) 0.3 Absolute Neuts (auto) 6.4 Absolute Lymphs (auto) 0.3 L Absolute Monos (auto) 0.8 Absolute Eos (auto) 0 Absolute Basos (auto) 0 Absolute Nucleated RBC 0.03 Neutrophils % 85 H Lymphocytes % 4 L Monocytes % 10 Myelocytes % 1 Nucleated RBC % 0.3 Nucleated RBCs/100 WBC 2 H Normal RBC Morphology Not Reportable Polychromasia 1+ Macrocytosis 2+ INR (Anticoag Therapy) APTT Patient Temperature ABG pH ABG pH (Temp Correct) ABG pCO2 ABG pCO2 (Temp Corrct ABG pO2 ABG pO2 (Temp Correct ABG HCO3 ABG O2 Saturation ABG Base Excess Respiration Rate O2 Delivery Device Ventilator Type Vent Mode FiO2 Inspiratory Time PEEP Pressure Support Pressure Control EPAP IPAP BiPAP Sodium 134 Potassium TNP Chloride 103 Carbon Dioxide 25 Anion Gap 6 BUN 70 H Creatinine 1.80 H Est GFR ( Amer) 37.0 Est GFR (Non-Af Amer) 28.8 BUN/Creatinine Ratio 38.9 H Glucose 128 H Lactic Acid 1.9 Calcium 8.5 L Total Bilirubin 2.00 H Direct Bilirubin Indirect Bilirubin AST TNP ALT 22 Alkaline Phosphatase 301 H Lactate Dehydrogenase Total Creatine Kinase 28 CK-MB (CK-2) 2.5 Troponin I 0.01 C-Reactive Protein 96.88 H B-Natriuretic Peptide Total Protein 6.0 L Albumin 2.4 L Globulin 3.6 Albumin/Globulin Ratio 0.7 L Urine Color Urine Appearance Urine pH Ur Specific Babb Urine Protein Urine Ketones Urine Blood Urine Nitrate Urine Bilirubin Urine Urobilinogen Ur Leukocyte Esterase Urine WBC (Auto) Urine RBC (Auto) Ur Squamous Epith Cells Urine Bacteria Hyaline Casts Urine Glucose Influenza A (Rapid) Influenza B (Rapid) 04/03/17 04/03/17 04/03/17 20:50 20:50 21:20 WBC RBC Hgb Hct MCV MCH MCHC RDW Plt Count MPV Immature Gran % (Auto) Neut % (Auto) Lymph % (Auto) [place] % (Auto) Eos % (Auto) Baso % (Auto) Absolute Neuts (auto) Absolute Lymphs (auto) Absolute Monos (auto) Absolute Eos (auto) Absolute Basos (auto) Absolute Nucleated RBC Neutrophils % Lymphocytes % Monocytes % Myelocytes % Nucleated RBC % Nucleated RBCs/100 WBC Normal RBC Morphology Polychromasia Macrocytosis INR (Anticoag Therapy) 2.52 H APTT 43.4 H Patient Temperature Not Reportable ABG pH 7.38 ABG pH (Temp Correct) Not Reportable ABG pCO2 42 ABG pCO2 (Temp Corrct Not Reportable ABG pO2 62 L ABG pO2 (Temp Correct Not Reportable ABG HCO3 24.6 ABG O2 Saturation 95.9 ABG Base Excess -0.3 Respiration Rate Not Reportable O2 Delivery Device nasal cannula Ventilator Type Not Reportable Vent Mode Not Reportable FiO2 28 Inspiratory Time Not Reportable PEEP Not Reportable Pressure Support Not Reportable Pressure Control Not Reportable EPAP Not Reportable IPAP Not Reportable BiPAP Not Reportable Sodium Potassium Chloride Carbon Dioxide Anion Gap BUN Creatinine Est GFR ( Amer) Est GFR (Non-Af Amer) BUN/Creatinine Ratio Glucose Lactic Acid Calcium Total Bilirubin Direct Bilirubin Indirect Bilirubin AST ALT Alkaline Phosphatase Lactate Dehydrogenase Total Creatine Kinase CK-MB (CK-2) Troponin I C-Reactive Protein B-Natriuretic Peptide 260 H Total Protein Albumin Globulin Albumin/Globulin Ratio Urine Color Urine Appearance Urine pH Ur Specific Babb Urine Protein Urine Ketones Urine Blood Urine Nitrate Urine Bilirubin Urine Urobilinogen Ur Leukocyte Esterase Urine WBC (Auto) Urine RBC (Auto) Ur Squamous Epith Cells Urine Bacteria Hyaline Casts Urine Glucose Influenza A (Rapid) Influenza B (Rapid) 04/03/17 04/03/17 04/04/17 21:20 22:24 01:15 WBC RBC Hgb Hct MCV MCH MCHC RDW Plt Count MPV Immature Gran % (Auto) Neut % (Auto) Lymph % (Auto) [place] % (Auto) Eos % (Auto) Baso % (Auto) Absolute Neuts (auto) Absolute Lymphs (auto) Absolute Monos (auto) Absolute Eos (auto) Absolute Basos (auto) Absolute Nucleated RBC Neutrophils % Lymphocytes % Monocytes % Myelocytes % Nucleated RBC % Nucleated RBCs/100 WBC Normal RBC Morphology Polychromasia Macrocytosis INR (Anticoag Therapy) APTT Patient Temperature ABG pH ABG pH (Temp Correct) ABG pCO2 ABG pCO2 (Temp Corrct ABG pO2 ABG pO2 (Temp Correct ABG HCO3 ABG O2 Saturation ABG Base Excess Respiration Rate O2 Delivery Device Ventilator Type Vent Mode FiO2 Inspiratory Time PEEP Pressure Support Pressure Control EPAP IPAP BiPAP Sodium Potassium 4.8 Chloride Carbon Dioxide Anion Gap BUN Creatinine Est GFR ( Amer) Est GFR (Non-Af Amer) BUN/Creatinine Ratio Glucose Lactic Acid Calcium Total Bilirubin Direct Bilirubin Indirect Bilirubin AST 26 ALT Alkaline Phosphatase Lactate Dehydrogenase Total Creatine Kinase CK-MB (CK-2) Troponin I C-Reactive Protein B-Natriuretic Peptide Total Protein Albumin Globulin Albumin/Globulin Ratio Urine Color Yellow Urine Appearance Clear Urine pH 5.0 Ur Specific Babb 1.012 Urine Protein Negative Urine Ketones Negative Urine Blood 2+ H Urine Nitrate Negative Urine Bilirubin Negative Urine Urobilinogen Negative Ur Leukocyte Esterase Negative Urine WBC (Auto) Absent Urine RBC (Auto) Trace(0-2/hpf) Ur Squamous Epith Cells Present H Urine Bacteria Absent Hyaline Casts Present H Urine Glucose Negative Influenza A (Rapid) Negative Influenza B (Rapid) Positive H 04/04/17 04/04/17 06:18 06:18 WBC 5.1 RBC 1.86 L Hgb 6.5 L Hct 20 L MCV 106 H MCH 35 H MCHC 33 RDW 20 H Plt Count 12 L* D MPV 9 Immature Gran % (Auto) Neut % (Auto) Lymph % (Auto) [place] % (Auto) Eos % (Auto) Baso % (Auto) Absolute Neuts (auto) Absolute Lymphs (auto) Absolute Monos (auto) Absolute Eos (auto) Absolute Basos (auto) Absolute Nucleated RBC Neutrophils % Lymphocytes % Monocytes % Myelocytes % Nucleated RBC % Nucleated RBCs/100 WBC Normal RBC Morphology Polychromasia Macrocytosis INR (Anticoag Therapy) APTT Patient Temperature ABG pH ABG pH (Temp Correct) ABG pCO2 ABG pCO2 (Temp Corrct ABG pO2 ABG pO2 (Temp Correct ABG HCO3 ABG O2 Saturation ABG Base Excess Respiration Rate O2 Delivery Device Ventilator Type Vent Mode FiO2 Inspiratory Time PEEP Pressure Support Pressure Control EPAP IPAP BiPAP Sodium 135 Potassium 4.8 Chloride 107 Carbon Dioxide 26 Anion Gap 2 BUN 65 H Creatinine 1.68 H Est GFR ( Amer) 40.1 Est GFR (Non-Af Amer) 31.2 BUN/Creatinine Ratio 38.7 H Glucose 112 H Lactic Acid Calcium 7.8 L Total Bilirubin 1.60 H Direct Bilirubin 1.10 H Indirect Bilirubin 0.5 AST ALT Alkaline Phosphatase Lactate Dehydrogenase Cancelled Total Creatine Kinase CK-MB (CK-2) Troponin I C-Reactive Protein B-Natriuretic Peptide Total Protein Albumin Globulin Albumin/Globulin Ratio Urine Color Urine Appearance Urine pH Ur Specific Babb Urine Protein Urine Ketones Urine Blood Urine Nitrate Urine Bilirubin Urine Urobilinogen Ur Leukocyte Esterase Urine WBC (Auto) Urine RBC (Auto) Ur Squamous Epith Cells Urine Bacteria Hyaline Casts Urine Glucose Influenza A (Rapid) Influenza B (Rapid) Assessment: 61 yo F w 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 I have discussed this with Danyelle and her daughter at length. 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 Regardless her performance status is now such that she will not be a candidate for further palliative chemotherapy. We have discussed this at length in clinic in the past and she was aware that this was likely coming. That being said, she is interested in treating her current respiratory infection and trying to stop the bleeding for comfort. I will give her two units of platelets (she has severe thrombocytopenia and xeralto on board) and see if ENT has advise on packing her nose. We discussed briefly home hospice vs. SNF or residence, but she would like to learn more about her options and discuss with her . I will put in a hospice consult. Plan: -transfuse 2 u platelets and 1 prbc -stop xeralto (already done) -ENT consult for nasal packing -DNR/DNI -hospice consult -increase tamiflu to 30 mg po bid based on creatinine clearance. I did advise that family members in contact receive prophylaxis
[2017-04-04] MEDS ORDERED: LORazepam INJ* 2 MG/ML 1 ML VIAL IV PUSH PRN (12:47)
[2017-04-04] MEDS ORDERED: Morphine ORAL.SOLN 10 mg* 2 MG/ML UDC 5 ml PO PRN (12:48)
[2017-04-04] MEDS ORDERED: Silver Nitrate/Potassium Nitr* 1 EA STICK TOPICAL ONE (13:00)
[2017-04-04] MEDS ORDERED: Lidocaine 4% TOPICAL* 50 ML TOP.SOLN TOPICAL ONE (13:00)
--- NOTE | 2017-04-04 13:22 | ED ---
Diane Lin Alfonso, scribed for Liv Dorado MD on 04/03/17 at 2258 . Complex/Multi-Sys Presentation - HPI Summary HPI Summary: This patient is a 61 year old F BIBA from [facility] to [facility] accompanied by daughter with a chief complaint of increasing SOB since earlier today and epistaxis from the right nostril since yesterday. The patient rates the pain 0/ 10 in severity. Symptoms alleviated by nothing. Patient reports bilat calf swelling and redness. Patient denies CP. Pt has metastatic cholangiocarcinoma and is undergoing chemotherapy every two weeks. She has hx COPD on home O2. Pt is on xarelto for atrial fibrillation. Pt has a pleural drain in her right chest, that a family member drained tonight with no relief of her SOB. Pt was not wheezing when evaluated at urgent care, so did not receive a neb or steroids prior to transfer. - History Of Current Complaint Chief Complaint: EDShortnessOfBreath Time Seen by Provider: 04/03/17 20:49 Hx Obtained From: Patient, Family/Face Cleaner - youngest daughter is with pt, Medical Records, Other: - Dr. Valera, urgent care provider Onset/Duration: Sudden Onset, Lasting Hours, Still Present Timing: Constant Severity Currently: Severe - dyspnea at rest Severity Initially: Moderate Location: Negative - denies chest pain Aggravating Factor(s): ambulation Alleviating Factor(s): nothing Associated Signs And Symptoms: Positive: Weakness, SOB, Cough, Edema, Anticoagulation Therapy, Indwelling News Anchor - right pleural drain, Other - right nare epistaxis, and calf swelling. Patient denies CP. No fever. Related History: Recent Illness, Recent Hospitalization - Allergies/Home Medications Allergies/Adverse Reactions: Allergies Allergy/AdvReac Type Severity Reaction Status Date / Time No Known Allergies Allergy Verified 04/03/17 19:37 Home Medications: Home Medications Albuterol HFA INHALER* [Ventolin HFA Inhaler*] 2 puff INH Q6H PRN 04/04/17 [ History Confirmed 04/04/17] Umeclidinium [place] [Incruse Ellipta] 1 puff INH DAILY 04/04/17 [History Confirmed 04/04/17] oxyCODONE TAB* [Roxycodone TAB 5 mg*] 5 mg PO Q6H PRN MDD 4 04/04/17 [History Confirmed 04/04/17] PMH/Surg Hx/FS Hx/Imm Hx Previously Healthy: No Endocrine/Hematology History: Denies: Hx Diabetes, Hx Thyroid Disease Cardiovascular History: Reports: Hx Atrial Fibrillation, Hx Congestive Heart Failure, Hx Hypertension - ON MEDS Denies: Hx Pacemaker/ICD Respiratory History: Reports: Hx Chronic Obstructive Pulmonary Disease (COPD) - on home O2, Hx Pneumonia, Hx Sleep Apnea GI History: Reports: Hx Gall Bladder Disease - metastatic cholangiocarcinoma Denies: Hx Ulcer History: Reports: Hx Renal Disease - CKD stage 4 Denies: Hx Dialysis Musculoskeletal History: Reports: Hx Arthritis - hand, Hx Back Problems Sensory History: Reports: Hx Contacts or Glasses - glasses Denies: Hx Hearing Aid Opthamlomology History: Reports: Hx Contacts or Glasses - glasses Neurological History: Reports: Hx Headaches Psychiatric History: Denies: Hx Panic Disorder - Cancer History Cancer Type, Location and Year: metastatic cholangiocarcinoma - ON CHEMO Hx Chemotherapy: Yes Hx Radiation Therapy: No - Surgical History Surgery Procedure, Year, and Place: TUBAL LIGATION. TONSILECTOMY -1962. IMPLANTED PORT RIGHT CHEST 04/2016. pleural drain right chest 03/05 Hx Anesthesia Reactions: No Infectious Disease History: No Infectious Disease History: Denies: Hx Clostridium Difficile, Hx Hepatitis, Hx Human Immunodeficiency Virus (HIV), Hx of Known/Suspected MRSA, Hx Shingles, Hx Tuberculosis, Hx Known/ Suspected VRE, Hx Known/Suspected VRSA, History Other Infectious Disease, Traveled Outside the [place] in Last 30 Days - Family History Known Family History: Positive: Other - No Hx Breast Cancer - Social History Lives: With Family Alcohol Use: None Hx Substance Use: No Substance Use Type: Reports: None Hx Tobacco Use: Yes Smoking Status (MU): Current Every Day Smoker Type: Cigarettes Amount Used/How Often: 1/2-3/4 PPD Length of Time of Smoking/Using Tobacco: 30+ years Have You Smoked in the Last Year: Yes Review of Systems Constitutional: Negative Positive: Epistaxis - right nare Negative: Chest Pain Positive: Shortness Of Breath Positive: Edema Positive: Other - redness bilat lower legs Positive: Weakness Psychological: Normal All Other Systems Reviewed And Are Negative: Yes Physical Exam Triage Information Reviewed: Yes Vital Signs On Initial Exam: Initial Vitals Temp Pulse Resp BP Pulse Ox 97.6 F 128 22 126/67 93 04/03/17 20:42 04/03/17 20:42 04/03/17 20:42 04/03/17 20:42 04/03/17 20:42 Vital Signs Reviewed: Yes Appearance: Positive: No Pain Distress, Ill-Appearing - SOB at rest, speaks in short fragmented sentences, Cachectic Skin: Positive: Warm, Skin Color Reflects Adequate Perfusion, Other - bilateral lower leg erythema and edema Head/Face: Positive: Normal Head/Face Inspection Eyes: Positive: EOMI, Conjunctiva Clear ENT: Positive: Hearing grossly normal, Pharynx normal, Other - bright red blood dripping occasionally from right nostril with nasal cannula in place. Pt blotting with tissue. Controlled with pressure and changing to humified O2. No active bleeding site visible. No hemorrhage. No blood visible in posterior pharynx. Neck: Positive: Supple Respiratory/Lung Sounds: Positive: Breath Sounds Present, Decreased Breath Sounds, Rhonchi - Coarse, Unable to speak in full sentences, Other - respiratory distress at rest, tachypnea; pleural drain in place right lat chest wall. port for IV access right ant chest Cardiovascular: Positive: IRR, Tachycardia, Leg Edema Left, Leg Edema Right, Other - Brisk capillary refill. Negative: Murmur Abdomen Description: Positive: Nontender, Soft Bowel Sounds: Positive: Present Musculoskeletal: Positive: Strength/ROM Intact, Edema Left, Edema Right Neurological: Positive: Sensory/Motor Intact, Alert, Oriented to Person Place, Time, Facial Symmetry, Speech Normal Psychiatric: Positive: Normal - Lenin Coma Scale Best Eye Response: 4 - Spontaneous Best Motor Response: 6 - Obeys Commands Best Verbal Response: 5 - Oriented [place]ow Coma Scale Comments: 15 Diagnostics - Vital Signs Vital Signs Temp Pulse Resp BP Pulse Ox 04/03/17 22:00 122 26 94 04/03/17 21:09 94 04/03/17 21:00 129 27 109/66 93 04/03/17 20:53 94 04/03/17 20:48 139 23 94 04/03/17 20:47 111/70 04/03/17 20:42 97.6 F 128 22 126/67 93 - Laboratory Lab Results: Lab Results 04/03/17 04/03/17 04/03/17 Range/Units 20:50 20:50 20:50 WBC 7.5 (3.5-10.8) 10^3/ul RBC 2.46 L (4.0-5.4) 10^6/ul Hgb 8.6 L (12.0-16.0) g/dl Hct 26 L (35-47) % MCV 107 H (80-97) fL MCH 35 H (27-31) pg MCHC 33 (31-36) g/dl RDW 20 H (10.5-15) % Plt Count 33 L (150-450) 10^3/ul MPV 10 (7.4-10.4) um3 Immature Gran % (Auto) 1 (0-9) % Neut % (Auto) 84.7 H (38-83) % Lymph % (Auto) 3.6 L (25-47) % [place] % (Auto) 11.2 H (1-9) % Eos % (Auto) 0.2 (0-6) % Baso % (Auto) 0.3 (0-2) % Absolute Neuts (auto) 6.4 (1.5-7.7) 10^3/ul Absolute Lymphs (auto) 0.3 L (1.0-4.8) 10^3/ul Absolute Monos (auto) 0.8 (0-0.8) 10^3/ul Absolute Eos (auto) 0 (0-0.6) 10^3/ul Absolute Basos (auto) 0 (0-0.2) 10^3/ul Absolute Nucleated RBC 0.03 10^3/ul Neutrophils % 85 H (38-83) % Lymphocytes % 4 L (25-47) % Monocytes % 10 (0-13) % Myelocytes % 1 (0-1) % Nucleated RBC % 0.3 Nucleated RBCs/100 WBC 2 H (0-0) Normal RBC Morphology Not Reportable Polychromasia 1+ Macrocytosis 2+ INR (Anticoag Therapy) (0.89-1.11) APTT (26.0-36.3) seconds Patient Temperature ABG pH (7.35-7.45) ABG pH (Temp Correct) ABG pCO2 (35-45) mmHg ABG pCO2 (Temp Corrct ABG pO2 (80-100) mmHg ABG pO2 (Temp Correct ABG HCO3 (19-31) mmol/L ABG O2 Saturation (95-98) % ABG Base Excess (-2.0-2.0) Respiration Rate O2 Delivery Device Ventilator Type Vent Mode FiO2 Inspiratory Time PEEP Pressure Support Pressure Control EPAP IPAP BiPAP Sodium 134 (133-145) mmol/L Potassium TNP Chloride 103 (101-111) mmol/L Carbon Dioxide 25 (22-32) mmol/L Anion Gap 6 (2-11) mmol/L BUN 70 H (6-24) mg/dL Creatinine 1.80 H (0.51-0.95) mg/dL Est GFR ( Amer) 37.0 (>60) Est GFR (Non-Af Amer) 28.8 (>60) BUN/Creatinine Ratio 38.9 H (8-20) Glucose 128 H (70-100) mg/dL Lactic Acid 1.9 (0.5-2.0) mmol/L Calcium 8.5 L (8.6-10.3) mg/dL Total Bilirubin 2.00 H (0.2-1.0) mg/dL AST TNP ALT 22 (7-52) U/L Alkaline Phosphatase 301 H (34-104) U/L Total Creatine Kinase 28 (10-223) U/L CK-MB (CK-2) 2.5 (0.6-6.3) ng/mL Troponin I 0.01 (<0.04) ng/mL C-Reactive Protein 96.88 H (< 5.00) mg/L B-Natriuretic Peptide ( - 100) pg/mL Total Protein 6.0 L (6.4-8.9) g/dL Albumin 2.4 L (3.2-5.2) g/dL Globulin 3.6 (2-4) g/dL Albumin/Globulin Ratio 0.7 L (1-3) Influenza A (Rapid) (Negative) Influenza B (Rapid) (Negative) 04/03/17 04/03/17 04/03/17 Range/Units 20:50 20:50 21:20 WBC (3.5-10.8) 10^3/ul RBC (4.0-5.4) 10^6/ul Hgb (12.0-16.0) g/dl Hct (35-47) % MCV (80-97) fL MCH (27-31) pg MCHC (31-36) g/dl RDW (10.5-15) % Plt Count (150-450) 10^3/ul MPV (7.4-10.4) um3 Immature Gran % (Auto) (0-9) % Neut % (Auto) (38-83) % Lymph % (Auto) (25-47) % [place] % (Auto) (1-9) % Eos % (Auto) (0-6) % Baso % (Auto) (0-2) % Absolute Neuts (auto) (1.5-7.7) 10^3/ul Absolute Lymphs (auto) (1.0-4.8) 10^3/ul Absolute Monos (auto) (0-0.8) 10^3/ul Absolute Eos (auto) (0-0.6) 10^3/ul Absolute Basos (auto) (0-0.2) 10^3/ul Absolute Nucleated RBC 10^3/ul Neutrophils % (38-83) % Lymphocytes % (25-47) % Monocytes % (0-13) % Myelocytes % (0-1) % Nucleated RBC % Nucleated RBCs/100 WBC (0-0) Normal RBC Morphology Polychromasia Macrocytosis INR (Anticoag Therapy) 2.52 H (0.89-1.11) APTT 43.4 H (26.0-36.3) seconds Patient Temperature Not Reportable ABG pH 7.38 (7.35-7.45) ABG pH (Temp Correct) Not Reportable ABG pCO2 42 (35-45) mmHg ABG pCO2 (Temp Corrct Not Reportable ABG pO2 62 L (80-100) mmHg ABG pO2 (Temp Correct Not Reportable ABG HCO3 24.6 (19-31) mmol/L ABG O2 Saturation 95.9 (95-98) % ABG Base Excess -0.3 (-2.0-2.0) Respiration Rate Not Reportable O2 Delivery Device nasal cannula Ventilator Type Not Reportable Vent Mode Not Reportable FiO2 28 Inspiratory Time Not Reportable PEEP Not Reportable Pressure Support Not Reportable Pressure Control Not Reportable EPAP Not Reportable IPAP Not Reportable BiPAP Not Reportable Sodium (133-145) mmol/L Potassium Chloride (101-111) mmol/L Carbon Dioxide (22-32) mmol/L Anion Gap (2-11) mmol/L BUN (6-24) mg/dL Creatinine (0.51-0.95) mg/dL Est GFR ( Amer) (>60) Est GFR (Non-Af Amer) (>60) BUN/Creatinine Ratio (8-20) Glucose (70-100) mg/dL Lactic Acid (0.5-2.0) mmol/L Calcium (8.6-10.3) mg/dL Total Bilirubin (0.2-1.0) mg/dL AST ALT (7-52) U/L Alkaline Phosphatase (34-104) U/L Total Creatine Kinase (10-223) U/L CK-MB (CK-2) (0.6-6.3) ng/mL Troponin I (<0.04) ng/mL C-Reactive Protein (< 5.00) mg/L B-Natriuretic Peptide 260 H ( - 100) pg/mL Total Protein (6.4-8.9) g/dL Albumin (3.2-5.2) g/dL Globulin (2-4) g/dL Albumin/Globulin Ratio (1-3) Influenza A (Rapid) (Negative) Influenza B (Rapid) (Negative) 04/03/17 04/03/17 Range/Units 21:20 22:24 WBC (3.5-10.8) 10^3/ul RBC (4.0-5.4) 10^6/ul Hgb (12.0-16.0) g/dl Hct (35-47) % MCV (80-97) fL MCH (27-31) pg MCHC (31-36) g/dl RDW (10.5-15) % Plt Count (150-450) 10^3/ul MPV (7.4-10.4) um3 Immature Gran % (Auto) (0-9) % Neut % (Auto) (38-83) % Lymph % (Auto) (25-47) % [place] % (Auto) (1-9) % Eos % (Auto) (0-6) % Baso % (Auto) (0-2) % Absolute Neuts (auto) (1.5-7.7) 10^3/ul Absolute Lymphs (auto) (1.0-4.8) 10^3/ul Absolute Monos (auto) (0-0.8) 10^3/ul Absolute Eos (auto) (0-0.6) 10^3/ul Absolute Basos (auto) (0-0.2) 10^3/ul Absolute Nucleated RBC 10^3/ul Neutrophils % (38-83) % Lymphocytes % (25-47) % Monocytes % (0-13) % Myelocytes % (0-1) % Nucleated RBC % Nucleated RBCs/100 WBC (0-0) Normal RBC Morphology Polychromasia Macrocytosis INR (Anticoag Therapy) (0.89-1.11) APTT (26.0-36.3) seconds Patient Temperature ABG pH (7.35-7.45) ABG pH (Temp Correct) ABG pCO2 (35-45) mmHg ABG pCO2 (Temp Corrct ABG pO2 (80-100) mmHg ABG pO2 (Temp Correct ABG HCO3 (19-31) mmol/L ABG O2 Saturation (95-98) % ABG Base Excess (-2.0-2.0) Respiration Rate O2 Delivery Device Ventilator Type Vent Mode FiO2 Inspiratory Time PEEP Pressure Support Pressure Control EPAP IPAP BiPAP Sodium (133-145) mmol/L Potassium 4.8 Chloride (101-111) mmol/L Carbon Dioxide (22-32) mmol/L Anion Gap (2-11) mmol/L BUN (6-24) mg/dL Creatinine (0.51-0.95) mg/dL Est GFR ( Amer) (>60) Est GFR (Non-Af Amer) (>60) BUN/Creatinine Ratio (8-20) Glucose (70-100) mg/dL Lactic Acid (0.5-2.0) mmol/L Calcium (8.6-10.3) mg/dL Total Bilirubin (0.2-1.0) mg/dL AST 26 ALT (7-52) U/L Alkaline Phosphatase (34-104) U/L Total Creatine Kinase (10-223) U/L CK-MB (CK-2) (0.6-6.3) ng/mL Troponin I (<0.04) ng/mL C-Reactive Protein (< 5.00) mg/L B-Natriuretic Peptide ( - 100) pg/mL Total Protein (6.4-8.9) g/dL Albumin (3.2-5.2) g/dL Globulin (2-4) g/dL Albumin/Globulin Ratio (1-3) Influenza A (Rapid) Negative (Negative) Influenza B (Rapid) Positive H (Negative) Result Diagrams: 04/04/17 06:18 04/04/17 06:18 Lab Statement: Any lab studies that have been ordered have been reviewed, and results considered in the medical decision making process. - Radiology CXR Radiology Interpretation Completed By: Radiologist - Extensive airspace consolidation at the RIGHT lung grossly new compared with the recent prior exam most consistent with pneumonia. RIGHT pleural drainage catheter remains in place. No significant change in magnitude of small RIGHT pleural effusion. ED physician has reviewed this radiology report and agrees. - EKG 2109 Cardiac Rate: Tachycardia EKG Rhythm: Atrial Fibrillation - BPM 126 ST Segment: Non-Specific Ectopy: None EKG Interpretation: Prolonged QRSD. Normal QTc. Negative axis -79. RBBB. EKG Comparison: No Significant Change - c/w 02/2017, afib rate is now rapid Complex Multi-Symp Course/Dx Assessment/Plan: Pt met SIRS criteria upon admission to ED, and sepsis order set was initiated. Blood cultures drawn prior to antibiotic administration. Zosyn and levofloxacin chosen for CAP, pseudomonas risk, non PCN allergic. Influenza swab pos for influenza B. Pt placed on droplet precautions. First dose of Tamiflu given in ED. Sepsis fluids 30cc/kg, given despite anasarca of legs. BNP 260. lactic acid 1.9. Pt with anemia and thrombocytopenia, chronic on biweekly chemotherapy. Absolute neutrophil count not low. Pt also with slowly oozing epistaxis from right nostril, on nasal cannula O2 continuously, on xarelto, and with thrombocytopenia. No evidence of brisk epistaxis or posterior bleed epistaxis in ED. With pt's dyspnea, tachypnea and hypoxia, and the fact that bleeding is controlled with pressure and changing to humidified O2 , will elect not to place nasal packing at this time. Discussed with Dr. Mccurdy who concurs and will follow pt. Hold xarelto. Afib with RVR, treating with IV fluids at present, may need medication. - Diagnoses Differential Diagnoses/HQI/PQRI: Sepsis, Other - pneumonia, CHF, PE Provider Diagnoses: Sepsis, Influenza B, Pneumonia, Atrial fibrillation with rapid ventricular response, COPD (chronic obstructive pulmonary disease), Cholangiocarcinoma of biliary tract, Pleural effusion on right, Thrombocytopenia, Anemia, Chronic kidney disease, stage 4 (severe), Hypoxia - Physician Notifications Discussed Care Of Patient With: Clara Mccurdy Time Discussed With Above Provider: 23:05 Instructed by Provider To: Other - Consulted Dr. Mccurdy (hospitalist) who agrees to admit. Discharge - Discharge Plan Condition: Guarded Disposition: ADMITTED TO [facility] The documentation as recorded by the Diane hu Alfonso accurately reflects the service I personally performed and the decisions made by , Liv Dorado MD.
[2017-04-04 16:42] LABS: Mean Platelet Volume 8 um3 (7.4-10.4)
[2017-04-04 16:47] LABS: Platelet Count 38 10^3/ul (150-450)
[2017-04-04] MEDS: Montelukast Sodium TAB* 10 MG PO SCH (17:24)
[2017-04-04 18:49] LABS: Mean Platelet Volume 8 um3 (7.4-10.4); Platelet Count 71 10^3/ul (150-450)
[2017-04-04] MEDS: Mometasone 220 MCG MDI INH SCH (20:37)
[2017-04-04] MEDS: Oseltamivir CAP* 30 MG CAP PO SCH (21:04)
[2017-04-04] MEDS: Levofloxacin 250 MG IVPREMX(*) 250 MG/50 ML BAG IVPB SCH (21:04)
--- NOTE | 2017-04-04 21:29 | CONS ---
CONSULTATION REPORT: DATE OF CONSULT: 04/04/17 REQUESTING PHYSICIAN: Dr. Mccurdy. REASON FOR CONSULTATION: Epistaxis. HISTORY OF PRESENT ILLNESS: The patient is a 61-year-old with a history of lymphoma and chemotherapy. She said she is not getting chemotherapy now, but her platelet count is low and she is currently anemic. She has been having right-sided nosebleed for the past 24 hours. I was asked to consult to treat. She just got a unit of packed red blood cells and platelets are pending, but they are inhouse, ready to be given. PHYSICAL EXAMINATION: She has got bleeding from her right nostril. Old clot was suctioned and the bleeding site was identified on the right anterior septum. Her nose was packed with cottonoids, with oxymetazoline and 4% lidocaine. After several minutes, these were removed. Extensive silver nitrate cautery was performed to the anterior septum on the right side and the right inferior turbinate. She was repacked, pack was removed, all the clots had been suctioned. Oropharynx was examined. There was no active bleeding going down that way, but no active bleeding coming out front. ASSESSMENT: This patient had right-sided epistaxis most likely from where her nasal prongs were touching when she was on home oxygen. RECOMMENDATION: Continue the oxygen by face mask. I am hoping between the silver nitrate cautery and the platelets she is about to get, she will not need to have a pack placed. It does seem to be controlled at this time. [id number]/[facility] #: [id number] [facility]
--- NOTE | 2017-04-05 01:05 | CONS ---
CC: Ambrosio Peter MD; Cheyenne Chowdhury MD * PALLIATIVE CARE CONSULTATION REPORT: DATE OF CONSULT: PRIMARY CARE PHYSICIAN: Ambrosio Peter MD REFERRING PHYSICIAN: Cheyenne Chowdhury MD REASON FOR CONSULT: Evaluation for hospice. HOSPITAL COURSE: This is a 61-year-old female with a past medical history of metastatic cholangiocarcinoma, on palliative chemo, gemcitabine, with also COPD , on 2 L of oxygen, still actively smoking, who presented to the emergency room on 04/03/17 with a nosebleed and shortness of breath. On admission, the patient 's chest x-ray showed extensive air space consolidation of the right lung, grossly new compared to the recent prior chest x-ray, most consistent with pneumonia, right pleural drainage, the catheter remains in place. No significant change in the magnitude of the small right pleural effusion. Regarding her epistaxis, her Xarelto was held and Afrin was attempted and ENT was consulted. The patient was also noted to be positive for influenza B and started on Tamiflu. She was also noted to have anemia and significant thrombocytopenia requiring platelets, and acute and chronic kidney injury. The patient was seen by Dr. 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 The patient states on a good day, she is often short of breath at rest. She is still actively smoking half a pack per day. She states that her breathing has improved since her admission here and she has not had much discussed about hospice. She states that her children are going to have a hard time. She does have 6 children; 2 are still living in the house, 1 the youngest has some intellectual disability. Her who is not working does care for her. She states that he cooks her meals, the daughter does the laundry. She is otherwise ambulating, bathing, and dressing herself. She does not use any assistive devices to ambulate and has had no falls. She states she does have ongoing issues with diarrhea, but she did not have any today. She continues to have a productive cough with orangish color discoloration. No chest pain, no urinary symptoms. Her nosebleed has been stopped. Otherwise remaining review of systems is negative. We talked about her discharge planning at length regarding home with hospice, residence, and a shelter with hospice. She feels that she can manage at home and her can help take care of her as well as her daughter and that she would prefer the hospice services at home. I told her I would follow up with her in the morning when her arrives to discuss this again. We also discussed a MOLST form regarding do not re-hospitalize and comfort measures and she was agreeable to both of those as well. PAST MEDICAL HISTORY: 1. COPD, on 2 L continuous. 2. Tobacco use. 3. Metastatic cholangiocarcinoma, on palliative chemo. 4. History of atrial fibrillation. 5. History of right pleural effusion, status post PleurX catheter. 6. Hypertension. 7. History of pancytopenia secondary to chemotherapy. 8. History of CKD. 9. Failure to thrive. 10. 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 MEDICATIONS: Inpatient medications: 1. Albuterol 2.5 inhaled four times a day. 2. Albuterol 2 puffs inhaled q.6 hours as needed. 3. Diltiazem 30 mg p.o. 4 times a day. 4. Lomotil 1 tab p.o. t.i.d. as needed. 5. Levaquin 250 mg q.24 hours. 6. Ativan 0.5 mg IV q.4 hours as needed. 7. Metoprolol 50 mg p.o. b.i.d. 8. Mometasone 2 puffs inhaled daily. 9. Singulair 10 mg daily. 10. Morphine 2 mg p.o. q.2 hours as needed for air hunger. 11. IV fluids 100 cc an hour. 12. Zofran 4 mg q.4 hours as needed. 13. Tamiflu 30 mg p.o. b.i.d. 14. Oxycodone 5 mg q.6 hours as needed. 15. Oxymetazoline 2 sprays to right naris b.i.d. scheduled. 16. Prochlorperazine 10 mg q.6 hours as needed. 17. Salmeterol Diskus inhaled b.i.d. 18. Ellipta MDI inhaled daily. ALLERGIES: No known drug allergies. FAMILY HISTORY: Mother from leukemia. Father of an ID. SOCIAL HISTORY: As mentioned, the patient lives at home with her , Jordan , who is her healthcare proxy and primary resident caregiver. She is still smoking half pack per day, has been smoking for the past 30 years. No alcohol use. She has 6 children, 2 of them are living in the home. Her youngest is 18 years of age with intellectual disability. REVIEW OF SYSTEMS: Fourteen-point review of systems reviewed, pertinent positives and negatives as mentioned in the HPI, otherwise negative. PHYSICAL EXAM: Vitals: Temperature 97.6, pulse rate is 78, respiratory rate is 16, oxygen saturation on FiO2 face mask 75%, blood pressure 106/58. General : A frail female, in no acute distress. HEENT: Head normocephalic. Pupils equal, reactive, and anicteric. Nares: Dried blood noted in her nares. Oropharynx: Mucous membranes dry. Neck: Supple. No lymphadenopathy. Cardiac : Irregularly irregular rate and rhythm. Soft systolic murmur heard throughout. Respiratory: Rhonchorous breath sounds bilaterally. Prolonged expiratory phase. No increased work of breathing. Abdomen: Soft, nontender, nondistended. Extremities: Significant lower extremity lymphedema. Distant pulses. Neurologic: Alert and oriented x3. No gross focal neurologic deficits. LABORATORY DATA: White count 5.1, hemoglobin 6.5, hematocrit 20, platelets 71. INR is 2.52. Sodium 135, potassium 4.8, chloride 107, bicarb 26, BUN 65, creatinine 1.68. Influenza B positive. 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 The patient is eligible for hospice with the principal diagnosis of hypoxic respiratory failure secondary to chronic obstructive pulmonary disease and tobacco use with a secondary diagnosis of metastatic cholangiocarcinoma with anemia, thrombocytopenia, and renal failure. I am going to follow up with the patient and her in the morning; however, the patient would like to go home with hospice services and with her helping care for her there. Her symptoms seemed to be relatively well controlled currently. I did discuss getting discharged with education in primary care involvement if hospice was not able to enrol her for over the weekend. She was going to think about this and we will follow up with her tomorrow to discuss more discharge planning. I am going to also update her MOLST form for do not rehospitalize, comfort measures only. Thank you for this consultation. I will follow along with you. PATIENT TIME: Greater than 90 minutes was spent doing the consultation, more than half the time was spent in direct patient contact. [id number]/CPS #: [id number] MTDD
[2017-04-05] MEDS: NS 0.9% 1000 ML* 1,000 ML IV SCH (05:06)
[2017-04-05] MEDS: Albuterol 2.5 MG/3 ML NEB.SOL* (0.083%) INH SCH ×4 (08:06→20:57)
[2017-04-05] MEDS: Salmeterol DISKUS (NF) INH SCH ×2 (08:08→21:02)
[2017-04-05] MEDS: Umeclidin 62.5 MDI(NF) 1 INH MDI INH SCH (08:08)
[2017-04-05] MEDS: Potassium Chlor TAB* 20 MEQ TAB.ER PO SCH ×2 (09:37→20:26)
[2017-04-05] MEDS: Loperamide CAP* 2 MG PO PRN ×2 (09:37→19:43)
[2017-04-05] MEDS: Metoprolol Tartrate TAB* 50 mg PO SCH ×2 (09:38→20:26)
[2017-04-05] MEDS: Oseltamivir CAP* 30 MG CAP PO SCH ×2 (09:38→20:26)
[2017-04-05] MEDS: Oxymetazoline 0.05% NASAL SPR* 15 ML BTL RIGHT NARE SCH ×2 (09:39→20:28)
[2017-04-05] MEDS: Diltiazem TAB* 30 MG PO SCH (09:39)
[2017-04-05] MEDS ORDERED: NS 0.9% 1000 ML* 1,000 ML IV SCH (09:55)
[2017-04-05] MEDS ORDERED: LORazepam TAB(*) 1 MG PO PRN (10:24)
--- NOTE | 2017-04-05 10:31 | PN ---
Progress Note - Progress Note Date of Service: 04/05/17 Note: Palliative care follow up note: Patient states her breathing has improved. Remains on 10L face mask. is at the bedside. Is comfortable taking care of her. Anticipated discharge tomorrow. Spoke that we will have our palliative care nurse come in and do teaching to help with discharge tomorrow as hospice cannot enroll her until next week. Will notify oncology of enrollment date for hospice and that family may be contacting them over the weekend if a crisis occurs.
[2017-04-05] MEDS: Montelukast Sodium TAB* 10 MG PO SCH (17:47)
[2017-04-05] MEDS: Levofloxacin 250 MG IVPREMX(*) 250 MG/50 ML BAG IVPB SCH (19:50)
[2017-04-05] MEDS: Mometasone 220 MCG MDI INH SCH (20:58)
[2017-04-06 08:05] VITALS: BP 104/64
[2017-04-06] MEDS: Oseltamivir CAP* 30 MG CAP PO SCH (08:10)
[2017-04-06] MEDS: Oxymetazoline 0.05% NASAL SPR* 15 ML BTL RIGHT NARE SCH (08:10)
[2017-04-06] MEDS: Potassium Chlor TAB* 20 MEQ TAB.ER PO SCH (08:10)
[2017-04-06] MEDS: Metoprolol Tartrate TAB* 50 mg PO SCH (08:10)
[2017-04-06] MEDS: Albuterol 2.5 MG/3 ML NEB.SOL* (0.083%) INH SCH ×2 (08:16→13:09)
[2017-04-06] MEDS: Salmeterol DISKUS (NF) INH SCH (08:18)
[2017-04-06] MEDS: Umeclidin 62.5 MDI(NF) 1 INH MDI INH SCH (08:18)
== END 2017-04-06 16:05 | disposition hospice, home (50) | DRG 164 ==
LOC: ED 20:34 → MEDTELE 23:48
PROVIDERS: ADMIT Hospitalist; ATTEND Internal Medicine Hematology & Oncology
PROC: 0W3Q7ZZ Control Bleeding in Respiratory Tract, Via Natural or Artificial Opening (ICD-10-PCS; principal; 2017-04-04)
PROC: 30233R1 Transfusion of Nonautologous Platelets into Peripheral Vein, Percutaneous Approach (ICD-10-PCS; 2017-04-04)
PROC: 30233N1 Transfusion of Nonautologous Red Blood Cells into Peripheral Vein, Percutaneous Approach (ICD-10-PCS; 2017-04-04)
DX: J10.00 Influenza due to other identified influenza virus with unspecified type of pneumonia (principal); J96.11 Chronic respiratory failure with hypoxia; R64 Cachexia; C79.9 Secondary malignant neoplasm of unspecified site; C85.90 Non-Hodgkin lymphoma, unspecified, unspecified site; C24.9 Malignant neoplasm of biliary tract, unspecified; J90 Pleural effusion, not elsewhere classified; D69.59 Other secondary thrombocytopenia; N18.4 Chronic kidney disease, stage 4 (severe); I13.0 Hypertensive heart and chronic kidney disease with heart failure and stage 1 through stage 4 chronic kidney disease, or unspecified chronic kidney disease; I50.9 Heart failure, unspecified; I48.91 Unspecified atrial fibrillation; R04.0 Epistaxis; J44.9 Chronic obstructive pulmonary disease, unspecified; M19.049 Primary osteoarthritis, unspecified hand; Z96.89 Presence of other specified functional implants; R74.8 Abnormal levels of other serum enzymes; E80.6 Other disorders of bilirubin metabolism; R60.0 Localized edema; T45.1X5A Adverse effect of antineoplastic and immunosuppressive drugs, initial encounter; D64.9 Anemia, unspecified; F17.210 Nicotine dependence, cigarettes, uncomplicated; R40.2362 Coma scale, best motor response, obeys commands, at arrival to emergency department; I45.10 Unspecified right bundle-branch block; R62.7 Adult failure to thrive; R40.2142 Coma scale, eyes open, spontaneous, at arrival to emergency department; R40.2252 Coma scale, best verbal response, oriented, at arrival to emergency department; Z66 Do not resuscitate; Z82.49 Family history of ischemic heart disease and other diseases of the circulatory system; Z98.51 Tubal ligation status; Z99.81 Dependence on supplemental oxygen; Z80.6 Family history of leukemia; Z68.22 Body mass index [BMI] 22.0-22.9, adult; Y92.009 Unspecified place in unspecified non-institutional (private) residence as the place of occurrence of the external cause
CPT/HCPCS: 36415; 36600; 71020; 80048; 80053; 81003; 81015; 82247; 82248; 82550; 82553; 82803; 83010; 83605; 83615; 83880; 84484; 85025; 85027; 85049; 85610; 85730; 86140; 86850; 86900; 86901; 86922; 87040; 87070; 87077; 87205; 87502; 93005; 94640; 94760; 99213; 99233; 99238; 99406; A9270-GY; G0463; J1160; J1642; J1956; J2060; J2543; P9035; P9040